=== PATIENT | female | born 1975 | race African-American/Black ===

== ENCOUNTER 2016-09-21 12:42 | Inpatient (IN) | payer SELFPAY ==
[~2016-09-21] VITALS: Ht 170.2 cm; Wt 77.0 kg
[2016-09-21 16:08] LABS: ABSOLUTE RETICULOCYTE CT. 0.04 M/uL (0.02-0.08); IMM.RETIC FRACTION 7.2 % (3-19); RETICULOCYTE COUNT 2.1 % (0.5-1.8)
[2016-09-21 16:16] LABS: HEMATOCRIT 19.1 % (36.0-46.0); MCH 34.2 PG (29.0-34.0); MCHC 35.1 G/DL (30.0-36.0); MCV 97.4 FL (83-99); RBC DIS.WIDTH-CV 24.5 % (11.8-14.6); RBC DIS.WIDTH-SD 77.1 % (39-53); RED BLOOD COUNT 1.96 M/uL (3.80-5.20); WHITE BLOOD COUNT 24.7 K/uL (4.1-10.2)
[2016-09-21 16:20] LABS: CHLORIDE 114 mEq/L (99-109); POTASSIUM 4.8 mEq/L (3.7-5.4); SODIUM 141 mEq/L (136-147)
[2016-09-21 16:22] LABS: GLUCOSE 96 mg/dL (70-99)
[2016-09-21 16:23] LABS: ANION GAP 9 MEQ/L (2-14)
[2016-09-21 16:24] LABS: TOTAL BILIRUBIN 5.7 mg/dL (0.0-1.0)
[2016-09-21 16:25] LABS: ALKALINE PHOSPHATASE 244 IU/L (3-129)
[2016-09-21 16:26] LABS: GFR ESTIMATE (CALCULATED) > 59 mL/min/
[2016-09-21 16:27] LABS: UREA NITROGEN (BUN) 8 mg/dL (9-23)
[2016-09-21 17:11] LABS: ANISOCYTOSIS 3+; EOSINOPHIL ABS CT 0.49; MEAN PLAT.VOLUME 10.6 uM^3 (9.5-12.4); OVALOCYTES RARE; PLAT.SUFFICIENCY INCREASED; PLATELET COUNT 536 K/uL (156-360); SICKLE CELLS 3+; TARGET CELLS RARE; USER ID NPD
[2016-09-21] MEDS ORDERED: FOLIC ACID1 MG PO (17:11)
[2016-09-21] MEDS ORDERED: HYDROXYUREA500 MG PO (17:11)
[2016-09-21] MEDS ORDERED: ONE-A-DAY ESSE1 EAC1 PO (17:11)
[2016-09-21 17:12] LABS: DELETE MACHINE DIFF? YES
[2016-09-21] MEDS ORDERED: MORPHINE SULFAT15 MG PO (17:12)
[2016-09-21] MEDS ORDERED: TYLENOL W/COD1 COMB1 PO (17:12)
[2016-09-22 07:42] LABS: HEMATOCRIT 16.4 % (36.0-46.0); MCH 33.5 PG (29.0-34.0); MCHC 34.8 G/DL (30.0-36.0); MCV 96.5 FL (83-99); MEAN PLAT.VOLUME 10.6 uM^3 (9.5-12.4); PLATELET COUNT 471 K/uL (156-360); RBC DIS.WIDTH-CV 23.7 % (11.8-14.6); RBC DIS.WIDTH-SD 78.8 % (39-53); WHITE BLOOD COUNT 24.6 K/uL (4.1-10.2)
[2016-09-22 07:53] LABS: ANION GAP 7 MEQ/L (2-14); CHLORIDE 112 MEQ/L (99-109); GFR ESTIMATE (CALCULATED) > 59 mL/min/; GLUCOSE 81 mg/dL (70-99); POTASSIUM 4.2 MEQ/L (3.7-5.4); SAMPLE HEMOLYSIS CHECK 0; SAMPLE ICTERIC CHECK 1; SAMPLE LIPEMIA CHECK 0; SODIUM 139 MEQ/L (136-147); UREA NITROGEN (BUN) 9 mg/dL (9-23)
[2016-09-22 09:10] VITALS: BP 117/56
[2016-09-22 15:58] VITALS: BP 103/50
[2016-09-22 17:44] LABS: ADD MIUA? YES; BILIRUBIN NEGATIVE; BLOOD NEGATIVE; COLOR AMBER ((YELLOW)); GLUCOSE (STRIP) NEGATIVE; KETONES NEGATIVE; LEUKOCYTES NEGATIVE; NITRITE NEGATIVE; PROTEIN (STRIP) NEGATIVE; SPECIFIC GRAVITY 1.009 (1.000-1.030); UROBILINOGEN 0.2 MG/DL (0.2-1.0)
[2016-09-22 19:21] LABS: BACTERIA NONE SEEN /HPF; EPITHELIAL CELLS 1+ /HPF; MUCUS TRACE /LPF; RED BLOOD CELLS NONE SEEN /HPF (0-5); UCUL ADDED? NO; WHITE BLOOD CELLS 0-5 /HPF (0-5)
[2016-09-22 19:47] VITALS: BP 96/53
[2016-09-23] VITALS (12 sets, daily range): BP systolic 98–129; BP diastolic 53–64
[2016-09-23 06:44] LABS: ANION GAP 8 MEQ/L (2-14); CHLORIDE 113 MEQ/L (99-109); GFR ESTIMATE (CALCULATED) > 59 mL/min/; POTASSIUM 4.1 MEQ/L (3.7-5.4); SAMPLE HEMOLYSIS CHECK 0; SAMPLE ICTERIC CHECK 1; SAMPLE LIPEMIA CHECK 1; SODIUM 140 MEQ/L (136-147); UREA NITROGEN (BUN) 10 mg/dL (9-23)
[2016-09-23 06:47] LABS: GLUCOSE 104 mg/dL (70-99)
[2016-09-23 07:23] LABS: HEMATOCRIT 14.8 % (36.0-46.0); MCH 34.6 PG (29.0-34.0); MCHC 36.5 G/DL (30.0-36.0); MCV 94.9 FL (83-99); RBC DIS.WIDTH-CV 25.5 % (11.8-14.6); RBC DIS.WIDTH-SD 83.6 % (39-53); RED BLOOD COUNT 1.56 M/uL (3.80-5.20); WHITE BLOOD COUNT 24.8 K/uL (4.1-10.2)
[2016-09-23 07:41] LABS: BASOPHIL COUNT 0.2 K/uL (0-0.1); EOSINOPHIL (%) 8.5 % (0-5); EOSINOPHIL COUNT 2.1 K/uL (0-0.3); HEMATOLOGY COMMENT 1 SMEAR COMPATIBLE; IMMATURE GRANULOCYTE (%) 0.5 % (0.0-0.7); IMMATURE GRANULOCYTE COUNT 0.1 K/uL; LYMPHOCYTE COUNT 11.6 K/uL (1.0-2.8); MEAN PLAT.VOLUME 9.9 uM^3 (9.5-12.4); MONOCYTE (%) 9.8 % (3-12); MONOCYTE COUNT 2.4 K/uL (0-0.8); NEUTROPHIL COUNT 8.4 K/uL (1.8-6.4); NRBC (%) 1.1 /100 WBC (0-0); PLAT.SUFFICIENCY INCREASED; PLATELET COUNT 425 K/uL (156-360); SICKLE CELLS 2+; USER ID STC
[2016-09-24] VITALS (9 sets, daily range): BP systolic 103–125; BP diastolic 51–66
[2016-09-24 07:07] LABS: HEMATOCRIT 19.5 % (36.0-46.0); MCH 33.3 PG (29.0-34.0); MCHC 35.9 G/DL (30.0-36.0); MCV 92.9 FL (83-99); MEAN PLAT.VOLUME 10.5 uM^3 (9.5-12.4); PLATELET COUNT 421 K/uL (156-360); RBC DIS.WIDTH-CV 20.5 % (11.8-14.6); WHITE BLOOD COUNT 20.6 K/uL (4.1-10.2)
[2016-09-24 18:13] LABS: INFLUENZA A VIRAL ANTIGEN NEGATIVE; INFLUENZA B VIRAL ANTIGEN NEGATIVE
[2016-09-25 03:36] VITALS: BP 126/63
[2016-09-25 07:45] VITALS: BP 135/78
[2016-09-25 12:19] VITALS: BP 122/58
[2016-09-25 14:45] LABS: HEMATOCRIT 19.8 % (36.0-46.0); MCHC 36.9 G/DL (30.0-36.0); MCV 92.1 FL (83-99); NRBC (%) 0.7 /100 WBC (0-0); RBC DIS.WIDTH-CV 19.1 % (11.8-14.6); RBC DIS.WIDTH-SD 60.5 % (39-53); RED BLOOD COUNT 2.15 M/uL (3.80-5.20); WHITE BLOOD COUNT 25.8 K/uL (4.1-10.2)
[2016-09-25 15:31] LABS: ANISOCYTOSIS 2+; BASOPHIL COUNT 0.1 K/uL (0-0.1); EOSINOPHIL (%) 0.9 % (0-5); EOSINOPHIL COUNT 0.2 K/uL (0-0.3); IMMATURE GRANULOCYTE (%) 0.4 % (0.0-0.7); IMMATURE GRANULOCYTE COUNT 0.1 K/uL; LYMPHOCYTE COUNT 7.2 K/uL (1.0-2.8); MACROCYTES 1+; MEAN PLAT.VOLUME 10.2 uM^3 (9.5-12.4); MICROCYTOSIS 1+; MONOCYTE (%) 9.8 % (3-12); MONOCYTE COUNT 2.5 K/uL (0-0.8); NEUTROPHIL (%) 60.7 % (45-76); NEUTROPHIL COUNT 15.7 K/uL (1.8-6.4); PLAT.SUFFICIENCY ADEQUATE; PLATELET COUNT 329 K/uL (156-360); POLYCHROMASIA OCC; SCHISTOCYTES OCC; SICKLE CELLS 1+; TARGET CELLS RARE; USER ID VLB
[2016-09-25 15:42] VITALS: BP 113/62
[2016-09-25 15:52] LABS: CHLORIDE 110 MEQ/L (99-109); GFR ESTIMATE (CALCULATED) > 59 mL/min/; GLUCOSE 107 mg/dL (70-99); POTASSIUM 4.4 MEQ/L (3.7-5.4); SAMPLE HEMOLYSIS CHECK 0; SODIUM 138 MEQ/L (136-147); UREA NITROGEN (BUN) 18 mg/dL (9-23)
[2016-09-25 15:53] LABS: ANION GAP 7 MEQ/L (2-14); SAMPLE ICTERIC CHECK 3; SAMPLE LIPEMIA CHECK 0
[2016-09-25 19:37] VITALS: BP 105/54
[2016-09-25 23:55] VITALS: BP 105/55
[2016-09-26 03:54] VITALS: BP 120/56
[2016-09-26 07:00] LABS: HEMATOCRIT 19.8 % (36.0-46.0); MCH 33.2 PG (29.0-34.0); MCHC 35.4 G/DL (30.0-36.0); MCV 93.8 FL (83-99); MEAN PLAT.VOLUME 10.3 uM^3 (9.5-12.4); NRBC (%) 0.8 /100 WBC (0-0); PLATELET COUNT 339 K/uL (156-360); RBC DIS.WIDTH-CV 19.7 % (11.8-14.6); RBC DIS.WIDTH-SD 66.1 % (39-53); RED BLOOD COUNT 2.11 M/uL (3.80-5.20); WHITE BLOOD COUNT 21.8 K/uL (4.1-10.2)
[2016-09-26 07:13] LABS: BASOPHIL COUNT 0.1 K/uL (0-0.1); EOSINOPHIL (%) 5.4 % (0-5); EOSINOPHIL COUNT 1.2 K/uL (0-0.3); IMMATURE GRANULOCYTE (%) 0.5 % (0.0-0.7); IMMATURE GRANULOCYTE COUNT 0.1 K/uL; LYMPHOCYTE COUNT 9.3 K/uL (1.0-2.8); MONOCYTE (%) 11.2 % (3-12); MONOCYTE COUNT 2.5 K/uL (0-0.8); NEUTROPHIL (%) 39.7 % (45-76); NEUTROPHIL COUNT 8.7 K/uL (1.8-6.4)
[2016-09-26 07:30] VITALS: BP 122/58
[2016-09-26 07:43] LABS: ANION GAP 4 MEQ/L (2-14); CHLORIDE 108 MEQ/L (99-109); GFR ESTIMATE (CALCULATED) > 59 mL/min/; GLUCOSE 94 mg/dL (70-99); POTASSIUM 4.2 MEQ/L (3.7-5.4); SAMPLE HEMOLYSIS CHECK 0; SAMPLE ICTERIC CHECK 2; SAMPLE LIPEMIA CHECK 0; SODIUM 138 MEQ/L (136-147); UREA NITROGEN (BUN) 14 mg/dL (9-23)
[2016-09-26 09:00] LABS: HEMATOLOGY COMMENT 1 REV; USER ID NJR
[2016-09-26 12:00] VITALS: BP 120/58
[2016-09-26 17:43] VITALS: BP 109/53
[2016-09-26 19:45] VITALS: BP 131/62
[2016-09-27 00:45] VITALS: BP 155/70
[2016-09-27 04:45] VITALS: BP 136/64
[2016-09-27 08:33] LABS: HEMATOCRIT 20.5 % (36.0-46.0); MCHC 34.6 G/DL (30.0-36.0); MCV 95.3 FL (83-99); MEAN PLAT.VOLUME 10.9 uM^3 (9.5-12.4); NRBC (%) 1.3 /100 WBC (0-0); PLATELET COUNT 361 K/uL (156-360); RBC DIS.WIDTH-CV 19.4 % (11.8-14.6); RBC DIS.WIDTH-SD 64.8 % (39-53); RED BLOOD COUNT 2.15 M/uL (3.80-5.20); WHITE BLOOD COUNT 19.1 K/uL (4.1-10.2)
[2016-09-27 08:57] LABS: ANION GAP 6 MEQ/L (2-14); CHLORIDE 108 MEQ/L (99-109); GFR ESTIMATE (CALCULATED) > 59 mL/min/; GLUCOSE 87 mg/dL (70-99); POTASSIUM 3.9 MEQ/L (3.7-5.4); SAMPLE HEMOLYSIS CHECK 0; SAMPLE ICTERIC CHECK 2; SAMPLE LIPEMIA CHECK 0; SODIUM 141 MEQ/L (136-147); UREA NITROGEN (BUN) 10 mg/dL (9-23)
[2016-09-27 09:22] VITALS: BP 134/68
[2016-09-27 09:48] LABS: ANISOCYTOSIS 1+; BASOPHIL COUNT 0.1 K/uL (0-0.1); EOSINOPHIL (%) 6.8 % (0-5); EOSINOPHIL COUNT 1.3 K/uL (0-0.3); HEMATOLOGY COMMENT 1 SMEAR COMPATIBLE; HYPOCHROMASIA 2+; IMMATURE GRANULOCYTE (%) 0.4 % (0.0-0.7); IMMATURE GRANULOCYTE COUNT 0.1 K/uL; LYMPHOCYTE COUNT 8.2 K/uL (1.0-2.8); MACROCYTES 1+; MICROCYTOSIS OCC; MONOCYTE COUNT 2.1 K/uL (0-0.8); NEUTROPHIL (%) 38.2 % (45-76); NEUTROPHIL COUNT 7.3 K/uL (1.8-6.4); PLAT.SUFFICIENCY INCREASED; POLYCHROMASIA OCC; SICKLE CELLS OCC; TARGET CELLS OCC; USER ID TLW
[2016-09-28 07:30] VITALS: BP 114/65
[2016-09-28 08:20] VITALS: BP 147/67
[2016-09-28 13:00] VITALS: BP 148/70
[2016-09-28 15:14] LABS: HEMATOCRIT 22.1 % (36.0-46.0); MCH 33.3 PG (29.0-34.0); MCHC 34.8 G/DL (30.0-36.0); MCV 95.7 FL (83-99); MEAN PLAT.VOLUME 10.9 uM^3 (9.5-12.4); PLATELET COUNT 394 K/uL (156-360); RBC DIS.WIDTH-CV 19.7 % (11.8-14.6); RBC DIS.WIDTH-SD 66.1 % (39-53); RED BLOOD COUNT 2.31 M/uL (3.80-5.20)
[2016-09-28 15:44] LABS: ALKALINE PHOSPHATASE 216 IU/L (3-129); ANION GAP 8 MEQ/L (2-14); CHLORIDE 106 MEQ/L (99-109); DIRECT BILIRUBIN 2.8 mg/dL (0.0-0.3); GFR ESTIMATE (CALCULATED) > 59 mL/min/; GLUCOSE 85 mg/dL (70-99); POTASSIUM 4.2 MEQ/L (3.7-5.4); SAMPLE HEMOLYSIS CHECK 0; SAMPLE ICTERIC CHECK 2; SAMPLE LIPEMIA CHECK 0; SODIUM 140 MEQ/L (136-147); TOTAL BILIRUBIN 6.9 MG/DL (0.0-1.0); UREA NITROGEN (BUN) 7 mg/dL (9-23)
[2016-09-28 19:40] VITALS: BP 168/73
[2016-09-29 01:20] VITALS: BP 145/62
[2016-09-29 05:06] VITALS: BP 166/71
[2016-09-29 06:39] LABS: HEMATOCRIT 22.4 % (36.0-46.0); MCH 33.3 PG (29.0-34.0); MCHC 34.4 G/DL (30.0-36.0); RBC DIS.WIDTH-CV 20.1 % (11.8-14.6); RBC DIS.WIDTH-SD 68.5 % (39-53); RED BLOOD COUNT 2.31 M/uL (3.80-5.20); WHITE BLOOD COUNT 16.1 K/uL (4.1-10.2)
[2016-09-29 07:04] LABS: ALKALINE PHOSPHATASE 209 IU/L (3-129); ANION GAP 7 MEQ/L (2-14); CHLORIDE 107 MEQ/L (99-109); DIRECT BILIRUBIN 1.7 mg/dL (0.0-0.3); GFR ESTIMATE (CALCULATED) > 59 mL/min/; GLUCOSE 95 mg/dL (70-99); SAMPLE HEMOLYSIS CHECK 0; SAMPLE ICTERIC CHECK 1; SAMPLE LIPEMIA CHECK 0; SODIUM 140 MEQ/L (136-147); TOTAL BILIRUBIN 5.6 MG/DL (0.0-1.0); UREA NITROGEN (BUN) 4 mg/dL (9-23)
[2016-09-29 08:33] LABS: BASOPHIL COUNT 0.1 K/uL (0-0.1); EOSINOPHIL (%) 5.9 % (0-5); HEMATOLOGY COMMENT 1 SMEAR COMPATIBLE; IMMATURE GRANULOCYTE (%) 0.4 % (0.0-0.7); IMMATURE GRANULOCYTE COUNT 0.1 K/uL; LYMPHOCYTE COUNT 6.8 K/uL (1.0-2.8); MEAN PLAT.VOLUME 11.3 uM^3 (9.5-12.4); MONOCYTE (%) 13.7 % (3-12); MONOCYTE COUNT 2.2 K/uL (0-0.8); NEUTROPHIL (%) 37.5 % (45-76); PLAT.SUFFICIENCY INCREASED; PLATELET COUNT 373 K/uL (156-360); USER ID STC
[2016-09-29 08:37] VITALS: BP 142/67
[2016-09-29] MEDS ORDERED: TYLENOL W/COD1 COMB1 PO (10:13)
== END 2016-09-29 12:47 | disposition home health service (06) | DRG 811 ==
LOC: EME 12:42 → EDOF 20:15 → 4SOUTH 20:15 → 4EAST 09-23 15:52
PROVIDERS: Emergency Medicine; Internal Medicine; Internal Medicine Hematology & Oncology; Physician Assistant; Student in an Organized Health Care Education/Training Program
PROC: 30233N1 Transfusion of Nonautologous Red Blood Cells into Peripheral Vein, Percutaneous Approach (ICD-10-PCS; principal; 2016-09-23)
DX: D57.00 Hb-SS disease with crisis, unspecified (principal); J18.9 Pneumonia, unspecified organism; R17 Unspecified jaundice; D72.829 Elevated white blood cell count, unspecified; Z88.0 Allergy status to penicillin; Z88.6 Allergy status to analgesic agent; Z88.1 Allergy status to other antibiotic agents; Z87.891 Personal history of nicotine dependence; Z83.2 Family history of diseases of the blood and blood-forming organs and certain disorders involving the immune mechanism; M54.5 Low back pain; R94.5 Abnormal results of liver function studies
CPT/HCPCS: 71010; 71020; 80048; 80053; 80076; 81003; 85025; 85027; 85045; 86156 90; 86850; 86860 90; 86870; 86880 90; 86885 90; 86900; 86900 90; 86901; 86901 90; 86905; 86906 90; 86920; 86971 90; 86978 90; 87040; 87502; 93005; 94799; 99281; 99285; J1200; J1650; J1885; J1956; J2270; J2405; J2930; J7030; J7120; P9016

== ENCOUNTER 2016-11-21 13:48 | Emergency (ER) | payer SELFPAY ==
[~2016-11-21] VITALS: Ht 170.2 cm; Wt 65.6 kg
[~2016-11-21 13:48] MED LIST: FOLIC ACID1 MG PO; HYDROXYUREA500 MG PO; MORPHINE SULFAT15 MG PO; ONE-A-DAY ESSE1 EAC1 PO; TYLENOL W/COD1 COMB1 PO
[2016-11-21 16:24] LABS: ADD MIUA? YES; BILIRUBIN NEGATIVE; BLOOD NEGATIVE; COLOR AMBER ((YELLOW)); GLUCOSE (STRIP) NEGATIVE; KETONES NEGATIVE; LEUKOCYTES NEGATIVE; NITRITE NEGATIVE; PROTEIN (STRIP) NEGATIVE; SPECIFIC GRAVITY 1.012 (1.000-1.030); UROBILINOGEN 0.2 MG/DL (0.2-1.0)
[2016-11-21 16:38] LABS: BACTERIA RARE /HPF; CASTS PRESENT /LPF; EPITHELIAL CELLS RARE /HPF; HYALINE CASTS 0-5 /LPF; MUCUS NONE SEEN /LPF; RED BLOOD CELLS 0-5 /HPF (0-5); WHITE BLOOD CELLS 0-5 /HPF (0-5)
[2016-11-21] MEDS ORDERED: ARYMO ER15 MG PO (18:26)
[2016-11-21 18:41] VITALS: BP 126/74
== END 2016-11-21 18:41 | disposition home or self-care (01) ==
LOC: EME 13:48
PROVIDERS: Physician Assistant
DX: D57.1 Sickle-cell disease without crisis (principal); M54.5 Low back pain; M79.604 Pain in right leg; M79.605 Pain in left leg; R06.00 Dyspnea, unspecified; R05 Cough
CPT/HCPCS: 71020; 80048; 81003; 85025; 85045; 99281; 99283; J2270

== ENCOUNTER 2016-12-24 02:13 | Inpatient (IN) | payer OTHER ==
[~2016-12-24] VITALS: Ht 170.2 cm; Wt 65.4 kg
[2016-12-24] VITALS (9 sets, daily range): BP systolic 95–113; BP diastolic 50–57
[~2016-12-24 02:13] MED LIST changes: +ARYMO ER15 MG PO
[2016-12-24 03:23] LABS: ADD MIUA? NO; BILIRUBIN NEGATIVE; BLOOD NEGATIVE; COLOR YELLOW ((YELLOW)); GLUCOSE (STRIP) NEGATIVE; KETONES NEGATIVE; LEUKOCYTES NEGATIVE; NITRITE NEGATIVE; PROTEIN (STRIP) 30; SPECIFIC GRAVITY 1.008 (1.000-1.030); UCUL ADDED? NO; UROBILINOGEN 0.2 MG/DL (0.2-1.0)
[2016-12-24 03:32] LABS: HEMATOCRIT 18.9 % (36.0-46.0); MCH 35.3 PG (29.0-34.0); MCHC 35.4 G/DL (30.0-36.0); MCV 99.5 FL (83-99); NRBC (%) 1.5 /100 WBC (0-0); PLATELET COUNT 444 K/uL (156-360); RBC DIS.WIDTH-CV 25.5 % (11.8-14.6); RBC DIS.WIDTH-SD 86.2 % (39-53); WHITE BLOOD COUNT 24.6 K/uL (4.1-10.2)
[2016-12-24 03:35] LABS: CHLORIDE 111 mEq/L (99-109); POTASSIUM 4.8 mEq/L (3.7-5.4); SODIUM 136 mEq/L (136-147)
[2016-12-24 03:37] LABS: GLUCOSE 98 mg/dL (70-99)
[2016-12-24 03:39] LABS: ANION GAP 8 MEQ/L (2-14); TOTAL BILIRUBIN 7.3 mg/dL (0.0-1.0)
[2016-12-24 03:41] LABS: ALKALINE PHOSPHATASE 261 IU/L (3-129); GFR ESTIMATE (CALCULATED) > 59 mL/min/
[2016-12-24 03:42] LABS: UREA NITROGEN (BUN) 14 mg/dL (9-23)
[2016-12-24 03:44] LABS: LIPASE 257 U/L (1.0-51.0)
[2016-12-24 03:50] LABS: QUANTITATIVE HCG < 4.0 MIU/ML
[2016-12-24 04:48] LABS: ABS NEUTROPHIL COUNT 12.9; EOSINOPHIL ABS CT 0.9; EOSINOPHILS 3.6 % (0-5.0); IMM.RETIC FRACTION 28.7 % (3-19); INSTRUMENT ABS NEUTROPHIL CT 11.6 K/uL; LYMPHOCYTES 32.4 % (15.0-45.0); MYELOCYTES 1.8 %; NUCLEATED RBC'S 2.7; RETIC HGB EQUIVALENT 31.7 (28-36); SEG.NEUTROPHILS 52.3 % (46.0-76.0)
[2016-12-24 04:49] LABS: RETICULOCYTE COUNT 43.8 % (0.5-1.8)
[2016-12-24] MEDS ORDERED: ALEVE220 MG PO (14:57)
[2016-12-25] VITALS (8 sets, daily range): BP systolic 105–129; BP diastolic 51–65
[2016-12-25 09:45] LABS: HEMATOCRIT 20.8 % (36.0-46.0); MCHC 35.6 G/DL (30.0-36.0); MCV 92.9 FL (83-99); MEAN PLAT.VOLUME 10.6 uM^3 (9.5-12.4); NRBC (%) 1.3 /100 WBC (0-0); PLATELET COUNT 385 K/uL (156-360); RBC DIS.WIDTH-CV 20.5 % (11.8-14.6); RBC DIS.WIDTH-SD 66.8 % (39-53); RED BLOOD COUNT 2.24 M/uL (3.80-5.20)
[2016-12-25 10:48] LABS: ALKALINE PHOSPHATASE 232 IU/L (3-129); ANION GAP 7 MEQ/L (2-14); CHLORIDE 112 MEQ/L (99-109); GFR ESTIMATE (CALCULATED) > 59 mL/min/; GLUCOSE 83 mg/dL (70-99); LIPASE 187 U/L (1.0-51.0); SAMPLE HEMOLYSIS CHECK 0; SAMPLE ICTERIC CHECK 2; SAMPLE LIPEMIA CHECK 0; SODIUM 138 MEQ/L (136-147); TOTAL BILIRUBIN 6.8 MG/DL (0.0-1.0); UREA NITROGEN (BUN) 12 mg/dL (9-23)
[2016-12-26 03:46] VITALS: BP 119/61
[2016-12-26 06:39] LABS: ALKALINE PHOSPHATASE 248 IU/L (3-129); ANION GAP 7 MEQ/L (2-14); BASOPHIL COUNT 0.1 K/uL (0-0.1); CHLORIDE 107 MEQ/L (99-109); EOSINOPHIL (%) 3.8 % (0-5); EOSINOPHIL COUNT 0.7 K/uL (0-0.3); GFR ESTIMATE (CALCULATED) > 59 mL/min/; GLUCOSE 94 mg/dL (70-99); HDL CHOLESTEROL 18 MG/DL (Desirable>=50); HEMATOCRIT 18.6 % (36.0-46.0); IMMATURE GRANULOCYTE (%) 0.6 % (0.0-0.7); IMMATURE GRANULOCYTE COUNT 0.1 K/uL; INSTRUMENT ABS NEUTROPHIL CT 8.2 K/uL; LDL CHOLESTEROL 73 mg/dL (Desirable<100); LIPASE 85 U/L (1.0-51.0); LYMPHOCYTE COUNT 6.9 K/uL (1.0-2.8); MCH 32.4 PG (29.0-34.0); MCHC 35.5 G/DL (30.0-36.0); MCV 91.2 FL (83-99); MEAN PLAT.VOLUME 10.5 uM^3 (9.5-12.4); MONOCYTE (%) 14.1 % (3-12); MONOCYTE COUNT 2.6 K/uL (0-0.8); NEUTROPHIL (%) 44.1 % (45-76); NEUTROPHIL COUNT 8.2 K/uL (1.8-6.4); NON-HDL CHOLESTEROL 95 mg/dL (Desirable<160); NRBC (%) 0.8 /100 WBC (0-0); PLATELET COUNT 373 K/uL (156-360); POTASSIUM 4.7 MEQ/L (3.7-5.4); RBC DIS.WIDTH-CV 21.1 % (11.8-14.6); RBC DIS.WIDTH-SD 68.3 % (39-53); RED BLOOD COUNT 2.04 M/uL (3.80-5.20); SAMPLE HEMOLYSIS CHECK 0; SAMPLE ICTERIC CHECK 2; SAMPLE LIPEMIA CHECK 0; SODIUM 134 MEQ/L (136-147); TOTAL CHOLESTEROL 113 mg/dL (Desirable<200); TRIGLYCERIDES 108 MG/DL (Normal: <150); UREA NITROGEN (BUN) 12 mg/dL (9-23); WHITE BLOOD COUNT 18.5 K/uL (4.1-10.2)
[2016-12-26 06:46] LABS: TOTAL BILIRUBIN 10.2 MG/DL (0.0-1.0)
[2016-12-26 06:52] VITALS: BP 108/55
[2016-12-26 09:24] LABS: HBSG INDEX 0.27; HPCA INDEX 0.38
[2016-12-26 09:25] LABS: ANTI-HEPATITIS A VIRUS (IGM) Nonreactive; HAV INDEX 0.22
[2016-12-26 09:27] LABS: ANTI-HEPATITIS B CORE (IGM) Nonreactive; HBC IgM INDEX 0.06
[2016-12-26 11:22] VITALS: BP 113/53
[2016-12-26 15:33] VITALS: BP 113/54
[2016-12-26 23:24] VITALS: BP 110/52
[2016-12-27 07:51] VITALS: BP 110/54
[2016-12-27 13:19] LABS: HEMATOCRIT 19.9 % (36.0-46.0); MCH 31.8 PG (29.0-34.0); MCHC 35.2 G/DL (30.0-36.0); MCV 90.5 FL (83-99); NRBC (%) 1.1 /100 WBC (0-0); RBC DIS.WIDTH-CV 19.9 % (11.8-14.6); RBC DIS.WIDTH-SD 63.6 % (39-53)
[2016-12-27 14:27] LABS: PLAT.SUFFICIENCY INCREASED; PLATELET CLUMPS PRESENT - PLATELET COUNT APPEARS INCREASED; PLATELET COUNT UNABLE TO REPORT K/uL (156-360)
[2016-12-27 16:00] VITALS: BP 112/55
[2016-12-28] VITALS (7 sets, daily range): BP systolic 101–116; BP diastolic 50–62
[2016-12-29 03:36] VITALS: BP 104/53
[2016-12-29 06:59] VITALS: BP 106/53
[2016-12-29 10:48] LABS: CHLORIDE 107 mEq/L (99-109); POTASSIUM 4.8 mEq/L (3.7-5.4); SODIUM 137 mEq/L (136-147)
[2016-12-29 10:51] LABS: GLUCOSE 95 mg/dL (70-99)
[2016-12-29 10:52] LABS: ANION GAP 8 MEQ/L (2-14)
[2016-12-29 10:53] LABS: TOTAL BILIRUBIN 7.1 mg/dL (0.0-1.0)
[2016-12-29 10:54] LABS: ALKALINE PHOSPHATASE 236 IU/L (3-129); GFR ESTIMATE (CALCULATED) > 59 mL/min/
[2016-12-29 10:55] LABS: UREA NITROGEN (BUN) 7 mg/dL (9-23)
[2016-12-29 11:22] VITALS: BP 101/55
[2016-12-29 15:44] VITALS: BP 111/53
[2016-12-29 19:46] VITALS: BP 88/54
[2016-12-30] VITALS (7 sets, daily range): BP systolic 103–112; BP diastolic 51–59
[2016-12-30 10:52] LABS: ALKALINE PHOSPHATASE 246 IU/L (3-129); ANION GAP 7 MEQ/L (2-14); CHLORIDE 104 MEQ/L (99-109); GFR ESTIMATE (CALCULATED) > 59 mL/min/; GLUCOSE 112 mg/dL (70-99); POTASSIUM 5.7 MEQ/L (3.7-5.4); SAMPLE HEMOLYSIS CHECK 2; SAMPLE ICTERIC CHECK 2; SAMPLE LIPEMIA CHECK 0; SODIUM 136 MEQ/L (136-147); UREA NITROGEN (BUN) 7 mg/dL (9-23)
[2016-12-30 10:55] LABS: TOTAL BILIRUBIN 6.9 MG/DL (0.0-1.0)
[2016-12-30 13:52] LABS: NO-CHARGE AST (GOT) 88 IU/L (15-37); POTASSIUM 4.7 MEQ/L (3.7-5.4)
[2016-12-31] VITALS (9 sets, daily range): BP systolic 91–114; BP diastolic 50–64
[2016-12-31 09:31] LABS: ALKALINE PHOSPHATASE 249 IU/L (3-129); ANION GAP 6 MEQ/L (2-14); CHLORIDE 103 MEQ/L (99-109); GFR ESTIMATE (CALCULATED) > 59 mL/min/; GLUCOSE 109 mg/dL (70-99); POTASSIUM 4.1 MEQ/L (3.7-5.4); SAMPLE HEMOLYSIS CHECK 0; SAMPLE ICTERIC CHECK 1; SAMPLE LIPEMIA CHECK 0; SODIUM 137 MEQ/L (136-147); TOTAL BILIRUBIN 5.8 MG/DL (0.0-1.0); UREA NITROGEN (BUN) 8 mg/dL (9-23)
[2016-12-31 09:33] LABS: BASOPHIL COUNT 0.1 K/uL (0-0.1); EOSINOPHIL (%) 6.6 % (0-5); EOSINOPHIL COUNT 1.2 K/uL (0-0.3); IMMATURE GRANULOCYTE (%) 0.5 % (0.0-0.7); IMMATURE GRANULOCYTE COUNT 0.1 K/uL; INSTRUMENT ABS NEUTROPHIL CT 7.7 K/uL; LYMPHOCYTE COUNT 6.8 K/uL (1.0-2.8); MCHC 32.1 G/DL (30.0-36.0); MEAN PLAT.VOLUME 10.9 uM^3 (9.5-12.4); MONOCYTE (%) 12.3 % (3-12); MONOCYTE COUNT 2.2 K/uL (0-0.8); NEUTROPHIL (%) 42.4 % (45-76); NEUTROPHIL COUNT 7.7 K/uL (1.8-6.4); NRBC (%) 1.1 /100 WBC (0-0); RBC DIS.WIDTH-CV 20.8 % (11.8-14.6); RBC DIS.WIDTH-SD 74.7 % (39-53); RED BLOOD COUNT 1.85 M/uL (3.80-5.20); WHITE BLOOD COUNT 18.1 K/uL (4.1-10.2)
[2016-12-31 09:36] LABS: MCV 102.7 FL (83-99); PLATELET COUNT 440 K/uL (156-360)
[2017-01-01 07:08] VITALS: BP 116/62
[2017-01-01 08:08] LABS: HEMATOCRIT 22.5 % (36.0-46.0); MCH 31.6 PG (29.0-34.0); NRBC (%) 0.9 /100 WBC (0-0); RBC DIS.WIDTH-CV 20.8 % (11.8-14.6); RBC DIS.WIDTH-SD 72.8 % (39-53); WHITE BLOOD COUNT 17.4 K/uL (4.1-10.2)
[2017-01-01 08:10] LABS: RED BLOOD COUNT 2.28 M/uL (3.80-5.20)
[2017-01-01 08:11] LABS: MCV 98.7 FL (83-99)
[2017-01-01 08:21] LABS: MEAN PLAT.VOLUME 10.9 uM^3 (9.5-12.4); PLAT.SUFFICIENCY INCREASED; PLATELET COUNT 341 K/uL (156-360)
[2017-01-01 12:26] VITALS: BP 102/53
[2017-01-01 12:52] VITALS: BP 107/53
[2017-01-01 15:29] VITALS: BP 107/59
[2017-01-01 22:29] VITALS: BP 109/58
[2017-01-02 06:58] VITALS: BP 108/54
[2017-01-02 11:49] LABS: HEMATOCRIT 22.7 % (36.0-46.0); MCH 32.6 PG (29.0-34.0); MCHC 33.9 G/DL (30.0-36.0); MCV 96.2 FL (83-99); MEAN PLAT.VOLUME 10.8 uM^3 (9.5-12.4); NRBC (%) 0.5 /100 WBC (0-0); PLATELET COUNT 381 K/uL (156-360); RBC DIS.WIDTH-SD 64.6 % (39-53); RED BLOOD COUNT 2.36 M/uL (3.80-5.20); WHITE BLOOD COUNT 16.1 K/uL (4.1-10.2)
[2017-01-02] MEDS ORDERED: BISACODYL5 MG PO (12:49)
[2017-01-02] MEDS ORDERED: SENNA LAX8.6 MG PO (12:50)
[2017-01-02] MEDS ORDERED: ACETAMINOPHEN-1 EAC1 PO (12:51)
[2017-01-02] MEDS ORDERED: MS CONTIN,ORAMO15 M1 PO (14:52)
[2017-01-02 15:05] VITALS: BP 110/56
== END 2017-01-02 16:26 | disposition home or self-care (01) | DRG 811 ==
LOC: EME 02:13 → 2EASTP 05:52 → EDOF 05:52 → 2EASTP 07:40 → 5EAST 12-27 20:31
PROVIDERS: Emergency Medicine; Hospitalist; Internal Medicine
PROC: 30233N1 Transfusion of Nonautologous Red Blood Cells into Peripheral Vein, Percutaneous Approach (ICD-10-PCS; principal; 2016-12-24)
DX: D57.00 Hb-SS disease with crisis, unspecified (principal); K85.90 Acute pancreatitis without necrosis or infection, unspecified; J18.9 Pneumonia, unspecified organism; E87.2 Acidosis; E87.5 Hyperkalemia; E86.0 Dehydration; E80.6 Other disorders of bilirubin metabolism; R79.89 Other specified abnormal findings of blood chemistry; K59.00 Constipation, unspecified; F17.210 Nicotine dependence, cigarettes, uncomplicated; Z88.0 Allergy status to penicillin; Z88.1 Allergy status to other antibiotic agents; Z88.5 Allergy status to narcotic agent
CPT/HCPCS: 71010; 71020; 74181; 80053; 80061; 80074; 81003; 83690; 84702; 84999; 85025; 85027; 85045; 86256 90; 86860; 86870; 86880; 86900; 86901; 86905; 86920; 87040; 94799; 99281; 99285; J1200; J1650; J1940; J1956; J2060; J2270; J2405; J3010; J7030; P9016

== ENCOUNTER 2017-02-16 20:09 | Emergency (ER) | payer OTHER ==
[~2017-02-16] VITALS: Ht 170.2 cm; Wt 68.4 kg
[~2017-02-16 20:09] MED LIST changes: +ACETAMINOPHEN-1 EAC1 PO; +ALEVE220 MG PO; +BISACODYL5 MG PO; +MS CONTIN,ORAMO15 M1 PO; +SENNA LAX8.6 MG PO
[2017-02-17 00:59] LABS: HEMATOCRIT 21.1 % (36.0-46.0); MCH 32.5 PG (29.0-34.0); MCHC 35.5 G/DL (30.0-36.0); MCV 91.3 FL (83-99); MEAN PLAT.VOLUME 10.8 uM^3 (9.5-12.4); NRBC (%) 1.5 /100 WBC (0-0); PLATELET COUNT 430 K/uL (156-360); RBC DIS.WIDTH-CV 23.2 % (11.8-14.6); RBC DIS.WIDTH-SD 72.3 % (39-53); RED BLOOD COUNT 2.31 M/uL (3.80-5.20); WHITE BLOOD COUNT 29.6 K/uL (4.1-10.2)
[2017-02-17 01:48] LABS: CHLORIDE 110 mEq/L (99-109); POTASSIUM 4.5 mEq/L (3.7-5.4); SODIUM 137 mEq/L (136-147)
[2017-02-17 01:50] LABS: GLUCOSE 107 mg/dL (70-99)
[2017-02-17 01:51] LABS: ANION GAP 9 MEQ/L (2-14)
[2017-02-17 01:52] LABS: TOTAL BILIRUBIN 5.6 mg/dL (0.0-1.0)
[2017-02-17 01:54] LABS: ALKALINE PHOSPHATASE 317 IU/L (3-129); GFR ESTIMATE (CALCULATED) > 59 mL/min/
[2017-02-17 01:55] LABS: UREA NITROGEN (BUN) 16 mg/dL (9-23)
[2017-02-17 01:59] LABS: IMM.RETIC FRACTION 25.2 % (3-19); RETIC HGB EQUIVALENT 33.4 (28-36); RETICULOCYTE COUNT > 18.0 % (0.5-1.8)
[2017-02-17 02:24] VITALS: BP 132/58
== END 2017-02-17 02:27 | disposition left against medical advice (07) ==
LOC: EME 20:09
PROVIDERS: Emergency Medicine
DX: D57.00 Hb-SS disease with crisis, unspecified (principal); Z88.0 Allergy status to penicillin; Z88.6 Allergy status to analgesic agent
CPT/HCPCS: 71020; 80053; 85027; 85045; 86860; 86870; 86880; 86900; 86901; 99281; 99284; J2270; J3010

== ENCOUNTER 2017-03-04 13:47 | Inpatient (IN) | payer OTHER ==
[~2017-03-04] VITALS: Ht 170.2 cm; Wt 68.4 kg
[2017-03-04 16:19] LABS: CHLORIDE 110 mEq/L (99-109); POTASSIUM 3.9 mEq/L (3.7-5.4); SODIUM 139 mEq/L (136-147)
[2017-03-04 16:22] LABS: GLUCOSE 103 mg/dL (70-99)
[2017-03-04 16:23] LABS: ANION GAP 12 MEQ/L (2-14)
[2017-03-04 16:25] LABS: ALKALINE PHOSPHATASE 299 IU/L (3-129)
[2017-03-04 16:26] LABS: GFR ESTIMATE (CALCULATED) > 59 mL/min/
[2017-03-04 16:27] LABS: DIRECT BILIRUBIN 1.6 mg/dL (0.0-0.3); UREA NITROGEN (BUN) 13 mg/dL (9-23)
[2017-03-04 16:29] LABS: HEMATOCRIT 18.1 % (36.0-46.0); MCH 33.2 PG (29.0-34.0); MCHC 34.8 G/DL (30.0-36.0); MEAN PLAT.VOLUME 11.3 uM^3 (9.5-12.4); NRBC (%) 3.5 /100 WBC (0-0); PLATELET COUNT 361 K/uL (156-360); RBC DIS.WIDTH-CV 27.7 % (11.8-14.6)
[2017-03-04 16:30] LABS: MCV 95.3 FL (83-99)
[2017-03-04 16:34] LABS: TROP-I INTERPRETATION NEGATIVE; TROPONIN-I < 0.01 ng/mL (0.0-0.30)
[2017-03-04 17:56] LABS: ADD MIUA? YES; BILIRUBIN NEGATIVE; BLOOD SMALL; COLOR AMBER ((YELLOW)); GLUCOSE (STRIP) NEGATIVE; KETONES NEGATIVE; LEUKOCYTES NEGATIVE; NITRITE NEGATIVE; PROTEIN (STRIP) 30; SPECIFIC GRAVITY 1.011 (1.000-1.030); UROBILINOGEN 0.2 MG/DL (0.2-1.0)
[2017-03-04 17:59] LABS: RETIC HGB EQUIVALENT 34.4 (28-36); RETICULOCYTE COUNT > 18.0 % (0.5-1.8)
[2017-03-04 18:10] LABS: BACTERIA NONE SEEN /HPF; EPITHELIAL CELLS RARE /HPF; MUCUS NONE SEEN /LPF; RED BLOOD CELLS 0-5 /HPF (0-5); UCUL ADDED? NO; WHITE BLOOD CELLS 0-5 /HPF (0-5)
[2017-03-04 19:57] LABS: LIPASE 185 U/L (1.0-51.0)
[2017-03-04 21:26] VITALS: BP 129/61
[2017-03-05] VITALS (9 sets, daily range): BP systolic 98–130; BP diastolic 55–65
[2017-03-05 11:14] LABS: INTERNAL CONTROL VALID? YES
[2017-03-05 19:03] LABS: HEMATOCRIT 21.1 % (36.0-46.0); MCH 34.1 PG (29.0-34.0); MCHC 36.5 G/DL (30.0-36.0); MCV 93.4 FL (83-99); NRBC (%) 2.8 /100 WBC (0-0); RBC DIS.WIDTH-SD 75.3 % (39-53); RED BLOOD COUNT 2.26 M/uL (3.80-5.20); WHITE BLOOD COUNT 21.1 K/uL (4.1-10.2)
[2017-03-05 19:14] LABS: ANION GAP 6 MEQ/L (2-14); CHLORIDE 112 MEQ/L (99-109); POTASSIUM 4.1 MEQ/L (3.7-5.4); SAMPLE HEMOLYSIS CHECK 0; SAMPLE ICTERIC CHECK 1; SAMPLE LIPEMIA CHECK 0; SODIUM 139 MEQ/L (136-147); TOTAL BILIRUBIN 4.9 MG/DL (0.0-1.0)
[2017-03-05 19:20] LABS: ALKALINE PHOSPHATASE 245 IU/L (3-129); GFR ESTIMATE (CALCULATED) > 59 mL/min/; GLUCOSE 92 mg/dL (70-99); UREA NITROGEN (BUN) 10 mg/dL (9-23)
[2017-03-05 20:22] LABS: MEAN PLAT.VOLUME 10.9 uM^3 (9.5-12.4); PLAT.SUFFICIENCY INCREASED; PLATELET COUNT 357 K/uL (156-360)
[2017-03-06 05:40] LABS: HEMATOCRIT 23.5 % (36.0-46.0); MCV 91.1 FL (83-99); NRBC (%) 2.4 /100 WBC (0-0); RBC DIS.WIDTH-CV 21.7 % (11.8-14.6); RBC DIS.WIDTH-SD 68.8 % (39-53); RED BLOOD COUNT 2.58 M/uL (3.80-5.20); WHITE BLOOD COUNT 20.7 K/uL (4.1-10.2)
[2017-03-06 06:16] LABS: ANION GAP 7 MEQ/L (2-14); CHLORIDE 112 MEQ/L (99-109); GFR ESTIMATE (CALCULATED) > 59 mL/min/; GLUCOSE 97 mg/dL (70-99); IRON 114 MCG/DL (35-150); POTASSIUM 4.4 MEQ/L (3.7-5.4); SAMPLE HEMOLYSIS CHECK 0; SAMPLE ICTERIC CHECK 1; SAMPLE LIPEMIA CHECK 0; SODIUM 139 MEQ/L (136-147); UREA NITROGEN (BUN) 7 mg/dL (9-23)
[2017-03-06 06:54] LABS: MEAN PLAT.VOLUME 10.8 uM^3 (9.5-12.4); PLATELET COUNT 347 K/uL (156-360)
[2017-03-06 07:57] LABS: FERRITIN > 1500 NG/ML (10-291)
[2017-03-06 08:00] VITALS: BP 112/54
[2017-03-06 16:14] VITALS: BP 114/65
[2017-03-06 19:57] VITALS: BP 118/71
[2017-03-06 23:14] VITALS: BP 113/55
[2017-03-07 03:38] VITALS: BP 115/61
[2017-03-07 07:07] LABS: HEMATOCRIT 21.1 % (36.0-46.0); MCH 30.9 PG (29.0-34.0); MCHC 34.1 G/DL (30.0-36.0); MCV 90.6 FL (83-99); MEAN PLAT.VOLUME 11.2 uM^3 (9.5-12.4); NRBC (%) 1.6 /100 WBC (0-0); PLATELET COUNT 282 K/uL (156-360); RBC DIS.WIDTH-CV 20.6 % (11.8-14.6); RBC DIS.WIDTH-SD 64.9 % (39-53); RED BLOOD COUNT 2.33 M/uL (3.80-5.20); WHITE BLOOD COUNT 19.2 K/uL (4.1-10.2)
[2017-03-07 07:16] VITALS: BP 111/54
[2017-03-07 11:02] VITALS: BP 119/59
[2017-03-07 15:15] VITALS: BP 133/66
[2017-03-07 19:46] VITALS: BP 112/56
[2017-03-07 23:50] VITALS: BP 101/55
[2017-03-08 07:10] VITALS: BP 121/56
[2017-03-08 11:12] VITALS: BP 119/60
[2017-03-08 15:04] VITALS: BP 107/57
[2017-03-08 20:38] VITALS: BP 128/89
[2017-03-09] VITALS (7 sets, daily range): BP systolic 103–119; BP diastolic 51–64
[2017-03-09 07:22] LABS: ALKALINE PHOSPHATASE 216 IU/L (3-129); ANION GAP 6 MEQ/L (2-14); CHLORIDE 106 MEQ/L (99-109); GFR ESTIMATE (CALCULATED) > 59 mL/min/; GLUCOSE 90 mg/dL (70-99); POTASSIUM 4.8 MEQ/L (3.7-5.4); SAMPLE HEMOLYSIS CHECK 0; SAMPLE ICTERIC CHECK 2; SAMPLE LIPEMIA CHECK 0; SODIUM 137 MEQ/L (136-147); UREA NITROGEN (BUN) 15 mg/dL (9-23)
[2017-03-09 07:28] LABS: TOTAL BILIRUBIN 8.4 MG/DL (0.0-1.0)
[2017-03-09 16:51] LABS: HEMATOCRIT 18.4 % (36.0-46.0); MCV 88.5 FL (83-99)
[2017-03-10] VITALS (13 sets, daily range): BP systolic 97–148; BP diastolic 50–67
[2017-03-10 09:46] LABS: HEMATOCRIT 20.7 % (36.0-46.0); MCHC 34.3 G/DL (30.0-36.0); MCV 87.3 FL (83-99); NRBC (%) 0.4 /100 WBC (0-0); RBC DIS.WIDTH-CV 18.6 % (11.8-14.6); RBC DIS.WIDTH-SD 56.9 % (39-53); RED BLOOD COUNT 2.37 M/uL (3.80-5.20); WHITE BLOOD COUNT 20.5 K/uL (4.1-10.2)
[2017-03-10 10:18] LABS: MEAN PLAT.VOLUME 11.3 uM^3 (9.5-12.4); PLAT.SUFFICIENCY ADEQUATE; PLATELET COUNT 252 K/uL (156-360)
[2017-03-10 19:04] LABS: HGBE Erythrocyte Cnt 2.63 Mill/uL (3.80-5.10); HGBE Hematocrit 25.5 % (35.0-45.0); HGBE Hemoglobin 8.4 g/dL (11.7-15.5); HGBE MCH 31.9 pg (27.0-33.0); HGBE RDW 21.5 % (11.0-15.0)
[2017-03-11 06:00] LABS: ABSOLUTE RETICULOCYTE CT. 0.2 M/uL (0.02-0.08); IMM.RETIC FRACTION 40.4 % (3-19); RETIC HGB EQUIVALENT 33.2 (28-36)
[2017-03-11 06:07] LABS: RETICULOCYTE COUNT 7.2 % (0.5-1.8)
[2017-03-11 08:59] LABS: BASOPHIL COUNT 0.1 K/uL (0-0.1); EOSINOPHIL (%) 5.4 % (0-5); HEMATOCRIT 24.3 % (36.0-46.0); IMMATURE GRANULOCYTE (%) 0.6 % (0.0-0.7); IMMATURE GRANULOCYTE COUNT 0.1 K/uL; INSTRUMENT ABS NEUTROPHIL CT 8.5 K/uL; LYMPHOCYTE COUNT 6.1 K/uL (1.0-2.8); MCH 29.8 PG (29.0-34.0); MCHC 33.7 G/DL (30.0-36.0); MCV 88.4 FL (83-99); MEAN PLAT.VOLUME 11.6 uM^3 (9.5-12.4); MONOCYTE (%) 12.3 % (3-12); MONOCYTE COUNT 2.2 K/uL (0-0.8); NEUTROPHIL (%) 47.3 % (45-76); NEUTROPHIL COUNT 8.5 K/uL (1.8-6.4); NRBC (%) 0.6 /100 WBC (0-0); PLATELET COUNT 251 K/uL (156-360); RBC DIS.WIDTH-CV 19.3 % (11.8-14.6); RED BLOOD COUNT 2.75 M/uL (3.80-5.20)
[2017-03-11 09:00] VITALS: BP 99/52
[2017-03-11 11:40] VITALS: BP 109/54
[2017-03-11 17:28] VITALS: BP 93/51
[2017-03-11 23:44] VITALS: BP 107/56
[2017-03-12 06:10] LABS: BASOPHIL COUNT 0.1 K/uL (0-0.1); EOSINOPHIL (%) 4.3 % (0-5); EOSINOPHIL COUNT 0.8 K/uL (0-0.3); HEMATOCRIT 24.6 % (36.0-46.0); IMMATURE GRANULOCYTE (%) 0.5 % (0.0-0.7); IMMATURE GRANULOCYTE COUNT 0.1 K/uL; INSTRUMENT ABS NEUTROPHIL CT 8.5 K/uL; LYMPHOCYTE COUNT 5.2 K/uL (1.0-2.8); MCH 29.9 PG (29.0-34.0); MCHC 33.7 G/DL (30.0-36.0); MCV 88.5 FL (83-99); MEAN PLAT.VOLUME 11.6 uM^3 (9.5-12.4); MONOCYTE COUNT 2.8 K/uL (0-0.8); NEUTROPHIL COUNT 8.5 K/uL (1.8-6.4); NRBC (%) 0.3 /100 WBC (0-0); PLATELET COUNT 258 K/uL (156-360); RBC DIS.WIDTH-CV 19.2 % (11.8-14.6); RBC DIS.WIDTH-SD 60.1 % (39-53); RED BLOOD COUNT 2.78 M/uL (3.80-5.20); WHITE BLOOD COUNT 17.3 K/uL (4.1-10.2)
[2017-03-12 06:37] LABS: ALKALINE PHOSPHATASE 263 IU/L (3-129); ANION GAP 7 MEQ/L (2-14); CHLORIDE 103 MEQ/L (99-109); GFR ESTIMATE (CALCULATED) > 59 mL/min/; GLUCOSE 97 mg/dL (70-99); POTASSIUM 4.6 MEQ/L (3.7-5.4); SAMPLE HEMOLYSIS CHECK 0; SAMPLE ICTERIC CHECK 2; SAMPLE LIPEMIA CHECK 0; SODIUM 135 MEQ/L (136-147); UREA NITROGEN (BUN) 13 mg/dL (9-23)
[2017-03-12 07:00] LABS: TOTAL BILIRUBIN 6.4 MG/DL (0.0-1.0)
[2017-03-12 09:03] VITALS: BP 101/53
[2017-03-12 16:56] VITALS: BP 107/52
[2017-03-13] VITALS: BP 91/56
[2017-03-13 03:38] VITALS: BP 106/54
[2017-03-13 05:35] LABS: BASOPHIL COUNT 0.1 K/uL (0-0.1); EOSINOPHIL (%) 4.6 % (0-5); EOSINOPHIL COUNT 0.8 K/uL (0-0.3); HEMATOCRIT 22.1 % (36.0-46.0); IMMATURE GRANULOCYTE (%) 0.6 % (0.0-0.7); IMMATURE GRANULOCYTE COUNT 0.1 K/uL; INSTRUMENT ABS NEUTROPHIL CT 8.2 K/uL; MCH 30.4 PG (29.0-34.0); MCHC 33.9 G/DL (30.0-36.0); MCV 89.5 FL (83-99); MEAN PLAT.VOLUME 11.4 uM^3 (9.5-12.4); MONOCYTE (%) 16.2 % (3-12); MONOCYTE COUNT 2.8 K/uL (0-0.8); NEUTROPHIL (%) 48.5 % (45-76); NEUTROPHIL COUNT 8.2 K/uL (1.8-6.4); NRBC (%) 0.3 /100 WBC (0-0); PLATELET COUNT 236 K/uL (156-360); RBC DIS.WIDTH-CV 18.5 % (11.8-14.6); RBC DIS.WIDTH-SD 60.3 % (39-53); RED BLOOD COUNT 2.47 M/uL (3.80-5.20)
[2017-03-13 07:51] VITALS: BP 93/54
[2017-03-13 10:32] VITALS: BP 93/54
[2017-03-13] MEDS ORDERED: FOLIC ACID1 MG PO (11:39)
[2017-03-13] MEDS ORDERED: HYDREA500 MG PO (11:39)
[2017-03-13] MEDS ORDERED: TYLENOL W/COD1 COMBO PO (11:39)
[2017-03-13] MEDS ORDERED: TYLENOL WITH C1 EACH PO ×2 (13:46→13:47)
== END 2017-03-13 13:11 | disposition home or self-care (01) | DRG 811 ==
LOC: EME 13:47 → 5SOUTH 18:48 → EDOF 18:48 → 5SOUTH 20:39
PROVIDERS: Anesthesiology; Emergency Medicine; Internal Medicine; Internal Medicine Hematology & Oncology; Physician Assistant Medical
PROC: 30233N1 Transfusion of Nonautologous Red Blood Cells into Peripheral Vein, Percutaneous Approach (ICD-10-PCS; principal; 2017-03-04)
PROC: 02HV33Z Insertion of Infusion Device into Superior Vena Cava, Percutaneous Approach (ICD-10-PCS; 2017-03-05)
DX: D57.01 Hb-SS disease with acute chest syndrome (principal); J18.9 Pneumonia, unspecified organism; R17 Unspecified jaundice; Z90.49 Acquired absence of other specified parts of digestive tract; F17.200 Nicotine dependence, unspecified, uncomplicated; Z88.5 Allergy status to narcotic agent
CPT/HCPCS: 71010; 71250; 80048; 80053; 80076; 81003; 82728; 83021 90; 83540; 83605; 83690; 84466; 84484; 85014; 85018; 85025; 85027; 85045; 86860; 86870; 86880; 86900; 86901; 86905; 86920; 87040; 87449; 93005; 93971; 94799; 99281; 99285; J1200; J1644; J1956; J2270; J7030; P9016

== ENCOUNTER 2017-04-20 10:14 | Inpatient (IN) | payer OTHER ==
[~2017-04-20] VITALS: Ht 162.6 cm; Wt 72.6 kg
[~2017-04-20 10:14] MED LIST changes: +HYDREA500 MG PO; +TYLENOL W/COD1 COMBO PO; +TYLENOL WITH C1 EACH PO
[2017-04-20 12:38] LABS: HEMATOCRIT 20.9 % (36.0-46.0); IMM.RETIC FRACTION 21.5 % (3-19); MCH 29.6 PG (29.0-34.0); MCHC 34.4 G/DL (30.0-36.0); MEAN PLAT.VOLUME 10.5 uM^3 (9.5-12.4); NRBC (%) 0.5 /100 WBC (0-0); PLATELET COUNT 544 K/uL (156-360); RBC DIS.WIDTH-SD 62.7 % (39-53); RED BLOOD COUNT 2.43 M/uL (3.80-5.20); RETIC HGB EQUIVALENT 34.5 (28-36); RETICULOCYTE COUNT 15.4 % (0.5-1.8); WHITE BLOOD COUNT 26.3 K/uL (4.1-10.2)
[2017-04-20 12:54] LABS: CHLORIDE 112 mEq/L (99-109); POTASSIUM 4.2 mEq/L (3.7-5.4); SODIUM 137 mEq/L (136-147)
[2017-04-20 12:56] LABS: GLUCOSE 106 mg/dL (70-99)
[2017-04-20 12:57] LABS: ANION GAP 10 MEQ/L (2-14)
[2017-04-20 13:00] LABS: GFR ESTIMATE (CALCULATED) > 59 mL/min/
[2017-04-20 13:01] LABS: UREA NITROGEN (BUN) 18 mg/dL (9-23)
[2017-04-20 14:06] LABS: ABS NEUTROPHIL COUNT 11.9; ANISOCYTOSIS 2+; BASOPHILS 0.9 %; EOSINOPHIL ABS CT 2.1; EOSINOPHILS 7.9 % (0-5.0); GIANT PLATELETS 2+; HYPOCHROMASIA 2+; INSTRUMENT ABS NEUTROPHIL CT 11.7 K/uL; LYMPHOCYTES 39.2 % (15.0-45.0); MACROCYTES 2+; NUCLEATED RBC'S 1.8; PLAT.SUFFICIENCY INCREASED; POIKILOCYTOSIS 2+; POLYCHROMASIA 1+; SEG.NEUTROPHILS 45.4 % (46.0-76.0); SICKLE CELLS 2+; SPHEROCYTES 1+; TARGET CELLS 1+
[2017-04-20] MEDS ORDERED: TORADOL10 MG PO (16:33)
[2017-04-20] MEDS ORDERED: PERCOCET 5/31 TABLET PO (16:33)
[2017-04-20] MEDS ORDERED: FOLIC ACID1 MG PO (18:29)
[2017-04-20] MEDS ORDERED: ASPIR 8181 M1 PO (18:29)
[2017-04-20] MEDS ORDERED: COD LIVER OIL1 EACH PO (18:29)
[2017-04-20] MEDS ORDERED: HYDREA500 MG PO (18:29)
[2017-04-20 19:53] LABS: MAGNESIUM 2.1 mg/dL (1.3-2.7)
[2017-04-20 22:26] VITALS: BP 113/58
[2017-04-21] VITALS (7 sets, daily range): BP systolic 96–120; BP diastolic 53–63
[2017-04-21 04:15] LABS: ADD MIUA? YES; BILIRUBIN NEGATIVE; BLOOD SMALL; COLOR YELLOW ((YELLOW)); GLUCOSE (STRIP) NEGATIVE; KETONES NEGATIVE; LEUKOCYTES NEGATIVE; NITRITE NEGATIVE; PROTEIN (STRIP) NEGATIVE; SPECIFIC GRAVITY 1.009 (1.000-1.030); UROBILINOGEN 0.2 MG/DL (0.2-1.0)
[2017-04-21 04:29] LABS: BACTERIA RARE /HPF; EPITHELIAL CELLS RARE /HPF; MUCUS NONE SEEN /LPF; RED BLOOD CELLS 0-5 /HPF (0-5); UCUL ADDED? NO; WHITE BLOOD CELLS 0-5 /HPF (0-5)
[2017-04-21 09:02] LABS: INTER. NORMALIZED RATIO 1.2; PROTHROMBIN TIME 12.9 SEC (10.2-12.9)
[2017-04-21 09:08] LABS: HEMATOCRIT 17.3 % (36.0-46.0); MCH 30.5 PG (29.0-34.0); MCHC 35.3 G/DL (30.0-36.0); MCV 86.5 FL (83-99); MEAN PLAT.VOLUME 10.5 uM^3 (9.5-12.4); NRBC (%) 0.4 /100 WBC (0-0); PLATELET COUNT 491 K/uL (156-360); RBC DIS.WIDTH-CV 21.1 % (11.8-14.6); RBC DIS.WIDTH-SD 64.7 % (39-53); WHITE BLOOD COUNT 26.2 K/uL (4.1-10.2)
[2017-04-21 09:15] LABS: ALKALINE PHOSPHATASE 228 IU/L (3-129); ANION GAP 4 MEQ/L (2-14); CHLORIDE 114 MEQ/L (99-109); GFR ESTIMATE (CALCULATED) > 59 mL/min/; GLUCOSE 104 mg/dL (70-99); POTASSIUM 4.8 MEQ/L (3.7-5.4); SAMPLE HEMOLYSIS CHECK 0; SAMPLE ICTERIC CHECK 1; SAMPLE LIPEMIA CHECK 0; SODIUM 136 MEQ/L (136-147); TOTAL BILIRUBIN 4.4 MG/DL (0.0-1.0); UREA NITROGEN (BUN) 11 mg/dL (9-23)
[2017-04-22 03:45] VITALS: BP 105/54
[2017-04-22 07:52] VITALS: BP 108/54
[2017-04-22 10:13] LABS: ANION GAP 7 MEQ/L (2-14); CHLORIDE 111 MEQ/L (99-109); POTASSIUM 4.5 MEQ/L (3.7-5.4); SAMPLE HEMOLYSIS CHECK 0; SAMPLE ICTERIC CHECK 1; SAMPLE LIPEMIA CHECK 0; SODIUM 138 MEQ/L (136-147)
[2017-04-22 10:14] LABS: HEMATOCRIT 16.8 % (36.0-46.0); MCH 29.2 PG (29.0-34.0); MCHC 33.3 G/DL (30.0-36.0); MCV 87.5 FL (83-99); MEAN PLAT.VOLUME 10.6 uM^3 (9.5-12.4); NRBC (%) 0.4 /100 WBC (0-0); PLATELET COUNT 502 K/uL (156-360); RBC DIS.WIDTH-CV 20.8 % (11.8-14.6); RBC DIS.WIDTH-SD 63.4 % (39-53); RED BLOOD COUNT 1.92 M/uL (3.80-5.20); WHITE BLOOD COUNT 27.1 K/uL (4.1-10.2)
[2017-04-22 10:18] LABS: GFR ESTIMATE (CALCULATED) > 59 mL/min/; GLUCOSE 129 mg/dL (70-99); UREA NITROGEN (BUN) 9 mg/dL (9-23)
[2017-04-22 11:41] VITALS: BP 96/54
[2017-04-22 16:06] VITALS: BP 99/52
[2017-04-22 19:25] VITALS: BP 89/53
[2017-04-23] VITALS (12 sets, daily range): BP systolic 92–127; BP diastolic 47–65
[2017-04-23] MEDS ORDERED: MORPHINE SULFAT15 MG PO (12:57)
[2017-04-23 13:00] LABS: HEMATOCRIT 23.8 % (36.0-46.0); MCH 29.3 PG (29.0-34.0); MCHC 33.6 G/DL (30.0-36.0); MCV 87.2 FL (83-99); MEAN PLAT.VOLUME 10.3 uM^3 (9.5-12.4); NRBC (%) 1.1 /100 WBC (0-0); PLATELET COUNT 529 K/uL (156-360); RBC DIS.WIDTH-CV 18.9 % (11.8-14.6); RBC DIS.WIDTH-SD 57.4 % (39-53); WHITE BLOOD COUNT 25.5 K/uL (4.1-10.2)
[2017-04-23 13:13] LABS: RED BLOOD COUNT 2.73 M/uL (3.80-5.20)
[2017-04-24 00:55] VITALS: BP 104/63
[2017-04-24 07:27] VITALS: BP 106/54
[2017-04-24 15:25] VITALS: BP 104/53
[2017-04-25 00:43] VITALS: BP 105/52
[2017-04-25 07:22] VITALS: BP 106/54
[2017-04-25 15:18] VITALS: BP 122/58
[2017-04-25 22:24] LABS: HEMATOCRIT 22.8 % (36.0-46.0); MCH 30.5 PG (29.0-34.0); MCHC 34.2 G/DL (30.0-36.0); MCV 89.1 FL (83-99); NRBC (%) 0.3 /100 WBC (0-0); RBC DIS.WIDTH-CV 20.6 % (11.8-14.6); RBC DIS.WIDTH-SD 64.9 % (39-53); RED BLOOD COUNT 2.56 M/uL (3.80-5.20); WHITE BLOOD COUNT 14.5 K/uL (4.1-10.2)
[2017-04-25 23:09] LABS: MEAN PLAT.VOLUME 12.2 uM^3 (9.5-12.4); PLAT.SUFFICIENCY ADEQUATE
[2017-04-25 23:40] VITALS: BP 107/56
[2017-04-25 23:56] LABS: PLATELET COUNT 246 K/uL (156-360)
[2017-04-26 07:48] VITALS: BP 96/47
[2017-04-26 08:11] LABS: BASOPHIL COUNT 0.1 K/uL (0-0.1); EOSINOPHIL (%) 1.6 % (0-5); EOSINOPHIL COUNT 0.2 K/uL (0-0.3); HEMATOCRIT 21.3 % (36.0-46.0); IMMATURE GRANULOCYTE (%) 0.8 % (0.0-0.7); IMMATURE GRANULOCYTE COUNT 0.1 K/uL; LYMPHOCYTE COUNT 5.2 K/uL (1.0-2.8); MCHC 34.3 G/DL (30.0-36.0); MCV 87.7 FL (83-99); MEAN PLAT.VOLUME 10.8 uM^3 (9.5-12.4); MONOCYTE (%) 17.8 % (3-12); MONOCYTE COUNT 2.7 K/uL (0-0.8); NEUTROPHIL (%) 45.7 % (45-76); NRBC (%) 0.3 /100 WBC (0-0); PLATELET COUNT 360 K/uL (156-360); RBC DIS.WIDTH-CV 19.8 % (11.8-14.6); RBC DIS.WIDTH-SD 61.6 % (39-53); RED BLOOD COUNT 2.43 M/uL (3.80-5.20); WHITE BLOOD COUNT 15.4 K/uL (4.1-10.2)
[2017-04-26 08:37] LABS: ALKALINE PHOSPHATASE 265 IU/L (3-129); ANION GAP 8 MEQ/L (2-14); CHLORIDE 104 MEQ/L (99-109); GFR ESTIMATE (CALCULATED) > 59 mL/min/; GLUCOSE 108 mg/dL (70-99); SAMPLE HEMOLYSIS CHECK 0; SAMPLE ICTERIC CHECK 2; SAMPLE LIPEMIA CHECK 0; SODIUM 134 MEQ/L (136-147); UREA NITROGEN (BUN) 15 mg/dL (9-23)
[2017-04-26 08:38] LABS: TOTAL BILIRUBIN 10.2 MG/DL (0.0-1.0)
[2017-04-26 10:18] LABS: LIPASE 82 U/L (1.0-51.0)
[2017-04-26 12:28] LABS: INFLUENZA A VIRAL ANTIGEN NEGATIVE; INFLUENZA B VIRAL ANTIGEN NEGATIVE
[2017-04-26 12:36] LABS: ADD MIUA? YES; BILIRUBIN NEGATIVE; BLOOD SMALL; COLOR AMBER ((YELLOW)); GLUCOSE (STRIP) NEGATIVE; KETONES NEGATIVE; LEUKOCYTES NEGATIVE; NITRITE NEGATIVE; PROTEIN (STRIP) NEGATIVE; SPECIFIC GRAVITY 1.009 (1.000-1.030)
[2017-04-26 12:55] LABS: INTERNAL CONTROL VALID? YES; MONOSPOT (MONONUCLEOSIS SEROL) NEGATIVE
[2017-04-26 12:55] LABS: BACTERIA NONE SEEN /HPF; EPITHELIAL CELLS RARE /HPF; MUCUS NONE SEEN /LPF; RED BLOOD CELLS 0-5 /HPF (0-5); UCUL ADDED? NO; UNCLASSIFIED CASTS 0-5 /LPF; WHITE BLOOD CELLS 0-5 /HPF (0-5)
[2017-04-26 15:35] VITALS: BP 97/48
[2017-04-26 23:45] VITALS: BP 105/52
[2017-04-27 06:35] LABS: BASOPHIL COUNT 0.1 K/uL (0-0.1); EOSINOPHIL COUNT 0.3 K/uL (0-0.3); HEMATOCRIT 20.2 % (36.0-46.0); IMMATURE GRANULOCYTE (%) 0.5 % (0.0-0.7); IMMATURE GRANULOCYTE COUNT 0.1 K/uL; INSTRUMENT ABS NEUTROPHIL CT 5.9 K/uL; MCH 29.8 PG (29.0-34.0); MCHC 33.2 G/DL (30.0-36.0); MCV 89.8 FL (83-99); MEAN PLAT.VOLUME 11.2 uM^3 (9.5-12.4); MONOCYTE (%) 16.6 % (3-12); MONOCYTE COUNT 2.5 K/uL (0-0.8); NEUTROPHIL (%) 39.9 % (45-76); NEUTROPHIL COUNT 5.9 K/uL (1.8-6.4); NRBC (%) 0.3 /100 WBC (0-0); PLATELET COUNT 352 K/uL (156-360); RBC DIS.WIDTH-CV 19.6 % (11.8-14.6); RBC DIS.WIDTH-SD 62.6 % (39-53); RED BLOOD COUNT 2.25 M/uL (3.80-5.20); WHITE BLOOD COUNT 14.9 K/uL (4.1-10.2)
[2017-04-27 06:58] LABS: ALKALINE PHOSPHATASE 232 IU/L (3-129); ANION GAP 5 MEQ/L (2-14); CHLORIDE 104 MEQ/L (99-109); GFR ESTIMATE (CALCULATED) > 59 mL/min/; GLUCOSE 88 mg/dL (70-99); POTASSIUM 5.2 MEQ/L (3.7-5.4); SAMPLE HEMOLYSIS CHECK 0; SAMPLE ICTERIC CHECK 2; SAMPLE LIPEMIA CHECK 0; SODIUM 133 MEQ/L (136-147); UREA NITROGEN (BUN) 14 mg/dL (9-23)
[2017-04-27 08:02] VITALS: BP 99/55
[2017-04-27 10:36] LABS: ANTI-HEPATITIS A VIRUS (IGM) Nonreactive; HAV INDEX 0.11; HBSG INDEX 0.17; HPCA INDEX 0.41
[2017-04-27 10:38] LABS: ANTI-HEPATITIS B CORE (IGM) Nonreactive; HBC IgM INDEX 0.04
[2017-04-27 15:39] VITALS: BP 101/54
[2017-04-27 21:11] VITALS: BP 92/55
[2017-04-27 22:20] VITALS: BP 98/53
[2017-04-27 23:24] VITALS: BP 103/52
[2017-04-28 01:03] VITALS: BP 95/54
[2017-04-28 01:24] VITALS: BP 103/58
[2017-04-28 02:39] VITALS: BP 95/51
[2017-04-28 03:39] VITALS: BP 121/61
[2017-04-28 06:47] LABS: BASOPHIL COUNT 0.1 K/uL (0-0.1); EOSINOPHIL (%) 5.5 % (0-5); EOSINOPHIL COUNT 0.7 K/uL (0-0.3); HEMATOCRIT 26.7 % (36.0-46.0); IMMATURE GRANULOCYTE (%) 0.3 % (0.0-0.7); INSTRUMENT ABS NEUTROPHIL CT 4.2 K/uL; LYMPHOCYTE COUNT 6.2 K/uL (1.0-2.8); MCH 30.7 PG (29.0-34.0); MCHC 34.5 G/DL (30.0-36.0); MEAN PLAT.VOLUME 11.2 uM^3 (9.5-12.4); MONOCYTE (%) 12.4 % (3-12); MONOCYTE COUNT 1.6 K/uL (0-0.8); NEUTROPHIL (%) 32.5 % (45-76); NEUTROPHIL COUNT 4.2 K/uL (1.8-6.4); NRBC (%) 0.2 /100 WBC (0-0); PLATELET COUNT 348 K/uL (156-360); RBC DIS.WIDTH-CV 18.1 % (11.8-14.6); RBC DIS.WIDTH-SD 58.3 % (39-53); WHITE BLOOD COUNT 12.8 K/uL (4.1-10.2)
[2017-04-28 07:17] LABS: ALKALINE PHOSPHATASE 255 IU/L (3-129); ANION GAP 8 MEQ/L (2-14); CHLORIDE 105 MEQ/L (99-109); GFR ESTIMATE (CALCULATED) > 59 mL/min/; GLUCOSE 116 mg/dL (70-99); POTASSIUM 4.4 MEQ/L (3.7-5.4); SAMPLE HEMOLYSIS CHECK 0; SAMPLE ICTERIC CHECK 1; SAMPLE LIPEMIA CHECK 0; SODIUM 135 MEQ/L (136-147); TOTAL BILIRUBIN 4.9 MG/DL (0.0-1.0); UREA NITROGEN (BUN) 12 mg/dL (9-23)
[2017-04-28 08:02] VITALS: BP 110/60
[2017-04-28 13:23] VITALS: BP 110/60
[2017-04-28 16:43] LABS: ALPHA-1-ANTITRYPSIN+ 177 mg/dL (83-199)
[2017-04-28 22:45] LABS: ANTI-SMOOTH MUSCLE (Actin)+ 25 U (<20); MITOCHONDRIAL (M2) ANTIBODIES+ <=20.0 U (<=20.0)
== END 2017-04-28 16:00 | disposition home or self-care (01) | DRG 812 ==
LOC: EME 10:14 → EDOF 19:27 → ENRESERV 19:30 → 5SOUTH 21:29
PROVIDERS: Emergency Medicine; Hospitalist; Internal Medicine; Internal Medicine Gastroenterology; Nurse Practitioner Adult Health; Physician Assistant Medical
PROC: 30233N1 Transfusion of Nonautologous Red Blood Cells into Peripheral Vein, Percutaneous Approach (ICD-10-PCS; principal; 2017-04-23)
DX: D57.00 Hb-SS disease with crisis, unspecified (principal); R50.81 Fever presenting with conditions classified elsewhere; E83.111 Hemochromatosis due to repeated red blood cell transfusions; R17 Unspecified jaundice; I51.7 Cardiomegaly; M16.12 Unilateral primary osteoarthritis, left hip; G89.29 Other chronic pain; F17.210 Nicotine dependence, cigarettes, uncomplicated
CPT/HCPCS: 71020; 71250; 73502; 74176; 80048; 80053; 81003; 82103 90; 82105 90; 82390; 82728; 83516 90; 83605; 83690; 83735; 85025; 85027; 85045; 85610; 85730; 86038; 86256 90; 86308; 86705; 86709; 86803; 86850; 86860; 86870; 86880; 86900; 86901; 86905; 86920; 87040; 87340; 87502; 93306; 94799; 99281; 99285; J1200; J1644; J1885; J1956; J2270; J7030; J7120; P9016

== ENCOUNTER 2017-07-09 16:21 | Inpatient (IN) | payer OTHER ==
[~2017-07-09] VITALS: Ht 170.2 cm; Wt 71.9 kg
[~2017-07-09 16:21] MED LIST changes: +ASPIR 8181 M1 PO; +COD LIVER OIL1 EACH PO; +PERCOCET 5/31 TABLET PO; +TORADOL10 MG PO
[2017-07-09 17:40] LABS: HEMATOCRIT 21.8 % (36.0-46.0); MCH 32.6 PG (29.0-34.0); MCHC 34.9 G/DL (30.0-36.0); MCV 93.6 FL (83-99); MEAN PLAT.VOLUME 11.1 uM^3 (9.5-12.4); NRBC (%) 2.5 /100 WBC (0-0); PLATELET COUNT 421 K/uL (156-360); RBC DIS.WIDTH-CV 25.8 % (11.8-14.6); RBC DIS.WIDTH-SD 80.8 % (39-53); RED BLOOD COUNT 2.33 M/uL (3.80-5.20); WHITE BLOOD COUNT 25.9 K/uL (4.1-10.2)
[2017-07-09 17:48] LABS: CHLORIDE 109 mEq/L (99-109); POTASSIUM 4.7 mEq/L (3.7-5.4); SODIUM 137 mEq/L (136-147)
[2017-07-09 17:51] LABS: GLUCOSE 91 mg/dL (70-99)
[2017-07-09 17:52] LABS: ANION GAP 12 MEQ/L (2-14); TOTAL BILIRUBIN 7.3 mg/dL (0.0-1.0)
[2017-07-09 17:54] LABS: ALKALINE PHOSPHATASE 449 IU/L (3-129); GFR ESTIMATE (CALCULATED) > 59 mL/min/
[2017-07-09 17:55] LABS: UREA NITROGEN (BUN) 14 mg/dL (9-23)
[2017-07-09 18:01] LABS: TROP-I INTERPRETATION NEGATIVE; TROPONIN-I < 0.01 ng/mL (0.0-0.30)
[2017-07-09 18:48] LABS: ADD MIUA? YES; BILIRUBIN NEGATIVE; BLOOD SMALL; COLOR AMBER ((YELLOW)); GLUCOSE (STRIP) NEGATIVE; KETONES NEGATIVE; LEUKOCYTES NEGATIVE; NITRITE NEGATIVE; PROTEIN (STRIP) NEGATIVE
[2017-07-09 18:49] LABS: INTERNAL CONTROL VALID? YES
[2017-07-09 18:50] LABS: BACTERIA RARE /HPF; EPITHELIAL CELLS RARE /HPF; HYALINE CASTS 0-5 /LPF; MUCUS TRACE /LPF; RED BLOOD CELLS 0-5 /HPF (0-5); UCUL ADDED? NO; WHITE BLOOD CELLS 0-5 /HPF (0-5)
[2017-07-09 18:53] LABS: ABS NEUTROPHIL COUNT 13.1; ATYPICAL LYMPHOCYTE 10.9 %; BAND NEUTROPHILS 0.9 % (0-8.0); EOSINOPHIL ABS CT 0.7; EOSINOPHILS 2.6 % (0-5.0); IMM.RETIC FRACTION 22.4 % (3-19); INSTRUMENT ABS NEUTROPHIL CT 11.5 K/uL; LYMPHOCYTES 29.7 % (15.0-45.0); MYELOCYTES 0.4 %; NUCLEATED RBC'S 1.7; RETIC HGB EQUIVALENT 36.4 (28-36); RETICULOCYTE COUNT > 18.0 % (0.5-1.8); SEG.NEUTROPHILS 49.8 % (46.0-76.0); SMUDGE CELLS 7.4
[2017-07-09] MEDS ORDERED: TYLENOL WITH C1 EACH PO (21:56)
[2017-07-09] MEDS ORDERED: ROXICODONE30 MG PO (21:57)
[2017-07-09] MEDS ORDERED: MORPHINE SULFAT30 M2 PO (21:57)
[2017-07-10 07:52] VITALS: BP 113/56
[2017-07-10 08:51] LABS: HEMATOCRIT 19.9 % (36.0-46.0); MCH 33.8 PG (29.0-34.0); MCHC 35.2 G/DL (30.0-36.0); MCV 96.1 FL (83-99); NRBC (%) 2.2 /100 WBC (0-0); PLATELET COUNT 362 K/uL (156-360); RBC DIS.WIDTH-CV 26.1 % (11.8-14.6); RBC DIS.WIDTH-SD 82.8 % (39-53); RED BLOOD COUNT 2.07 M/uL (3.80-5.20); WHITE BLOOD COUNT 23.2 K/uL (4.1-10.2)
[2017-07-10 09:13] LABS: ALKALINE PHOSPHATASE 393 IU/L (3-129); ANION GAP 7 MEQ/L (2-14); CHLORIDE 110 MEQ/L (99-109); GFR ESTIMATE (CALCULATED) > 59 mL/min/; GLUCOSE 109 mg/dL (70-99); POTASSIUM 5.2 MEQ/L (3.7-5.4); SAMPLE HEMOLYSIS CHECK 1; SAMPLE ICTERIC CHECK 1; SAMPLE LIPEMIA CHECK 1; SODIUM 138 MEQ/L (136-147); TOTAL BILIRUBIN 6.2 MG/DL (0.0-1.0); UREA NITROGEN (BUN) 12 mg/dL (9-23)
[2017-07-11 08:10] VITALS: BP 116/58
[2017-07-11 10:17] LABS: HEMATOCRIT 19.7 % (36.0-46.0); MCHC 35.5 G/DL (30.0-36.0); MCV 95.6 FL (83-99); NRBC (%) 1.9 /100 WBC (0-0); RBC DIS.WIDTH-SD 81.9 % (39-53); RED BLOOD COUNT 2.06 M/uL (3.80-5.20); WHITE BLOOD COUNT 19.2 K/uL (4.1-10.2)
[2017-07-11 10:48] LABS: PLAT.SUFFICIENCY ADEQUATE; PLATELET COUNT 358 K/uL (156-360)
[2017-07-11 10:58] LABS: ANION GAP 4 MEQ/L (2-14); CHLORIDE 109 MEQ/L (99-109); GFR ESTIMATE (CALCULATED) > 59 mL/min/; GLUCOSE 93 mg/dL (70-99); POTASSIUM 5.2 MEQ/L (3.7-5.4); SAMPLE HEMOLYSIS CHECK 0; SAMPLE ICTERIC CHECK 1; SAMPLE LIPEMIA CHECK 0; SODIUM 136 MEQ/L (136-147); UREA NITROGEN (BUN) 8 mg/dL (9-23)
[2017-07-11 14:06] VITALS: BP 109/54
[2017-07-11 14:22] VITALS: BP 115/58
[2017-07-11 15:22] VITALS: BP 117/56
[2017-07-11 16:38] VITALS: BP 111/56
[2017-07-11 23:28] VITALS: BP 99/54
[2017-07-12 08:09] VITALS: BP 103/51
[2017-07-12 14:28] LABS: MCH 32.9 PG (29.0-34.0); MEAN PLAT.VOLUME 10.7 uM^3 (9.5-12.4); NRBC (%) 1.6 /100 WBC (0-0); PLATELET COUNT 353 K/uL (156-360); RBC DIS.WIDTH-SD 74.5 % (39-53); RED BLOOD COUNT 2.19 M/uL (3.80-5.20)
[2017-07-12 15:00] LABS: BASOPHIL COUNT 0.1 K/uL (0-0.1); EOSINOPHIL (%) 6.5 % (0-5); EOSINOPHIL COUNT 1.2 K/uL (0-0.3); IMMATURE GRANULOCYTE (%) 0.6 % (0.0-0.7); IMMATURE GRANULOCYTE COUNT 0.1 K/uL; INSTRUMENT ABS NEUTROPHIL CT 6.9 K/uL; LYMPHOCYTE COUNT 7.4 K/uL (1.0-2.8); MONOCYTE (%) 12.8 % (3-12); MONOCYTE COUNT 2.3 K/uL (0-0.8); NEUTROPHIL (%) 38.4 % (45-76); NEUTROPHIL COUNT 6.9 K/uL (1.8-6.4)
[2017-07-12 15:02] LABS: MCV 91.3 FL (83-99)
[2017-07-12 15:04] LABS: ANION GAP 7 MEQ/L (2-14); CHLORIDE 108 MEQ/L (99-109); GFR ESTIMATE (CALCULATED) > 59 mL/min/; GLUCOSE 100 mg/dL (70-99); SAMPLE HEMOLYSIS CHECK 0; SAMPLE ICTERIC CHECK 1; SAMPLE LIPEMIA CHECK 0; SODIUM 137 MEQ/L (136-147); UREA NITROGEN (BUN) 9 mg/dL (9-23)
[2017-07-12 16:25] VITALS: BP 114/57
[2017-07-12 22:19] VITALS: BP 107/53
[2017-07-13] VITALS (7 sets, daily range): BP systolic 93–112; BP diastolic 51–72
[2017-07-13 06:03] LABS: MCH 32.3 PG (29.0-34.0); MCHC 36.5 G/DL (30.0-36.0); MCV 88.5 FL (83-99); MEAN PLAT.VOLUME 10.8 uM^3 (9.5-12.4); NRBC (%) 0.8 /100 WBC (0-0); PLATELET COUNT 326 K/uL (156-360); RBC DIS.WIDTH-CV 22.2 % (11.8-14.6); RED BLOOD COUNT 1.92 M/uL (3.80-5.20); WHITE BLOOD COUNT 19.5 K/uL (4.1-10.2)
[2017-07-14 04:43] VITALS: BP 106/54
[2017-07-14 05:08] VITALS: BP 110/54
[2017-07-14 06:08] VITALS: BP 108/56
[2017-07-14 07:26] VITALS: BP 137/62
[2017-07-14 07:30] VITALS: BP 102/51
[2017-07-14 08:01] LABS: HEMATOCRIT 23.5 % (36.0-46.0); MCV 89.4 FL (83-99)
[2017-07-14 15:45] VITALS: BP 108/53
[2017-07-15 15:28] VITALS: BP 95/51
[2017-07-15 23:28] VITALS: BP 96/50
[2017-07-16 08:00] VITALS: BP 104/52
[2017-07-16 09:55] LABS: HEMATOCRIT 23.6 % (36.0-46.0); MCV 92.2 FL (83-99)
[2017-07-16 16:13] VITALS: BP 104/52
[2017-07-16] MEDS ORDERED: MORPHINE SULFAT30 M2 PO (16:37)
== END 2017-07-16 17:07 | disposition home or self-care (01) | DRG 812 ==
LOC: EME 16:21 → 5EAST 23:48 → ENRESERV 23:48 → EDOF 23:48 → ENRESERV 07-10 00:19 → 5EAST 07-10 01:10
PROVIDERS: Emergency Medicine; Hospitalist; Student in an Organized Health Care Education/Training Program
PROC: 30233N1 Transfusion of Nonautologous Red Blood Cells into Peripheral Vein, Percutaneous Approach (ICD-10-PCS; principal; 2017-07-10)
DX: D57.00 Hb-SS disease with crisis, unspecified (principal); R17 Unspecified jaundice; J98.11 Atelectasis; E27.9 Disorder of adrenal gland, unspecified; E83.111 Hemochromatosis due to repeated red blood cell transfusions; R09.02 Hypoxemia; D64.9 Anemia, unspecified; L29.9 Pruritus, unspecified; F17.210 Nicotine dependence, cigarettes, uncomplicated; I51.7 Cardiomegaly; M79.605 Pain in left leg; M79.604 Pain in right leg; F41.9 Anxiety disorder, unspecified; M54.9 Dorsalgia, unspecified; D72.829 Elevated white blood cell count, unspecified; Z90.49 Acquired absence of other specified parts of digestive tract; Z88.0 Allergy status to penicillin; Z88.5 Allergy status to narcotic agent
CPT/HCPCS: 71020; 71275; 73610; 80048; 80053; 81003; 84484; 84703; 85014; 85018; 85025; 85027; 85045; 85379; 86850; 86860; 86870; 86880; 86900; 86901; 86905; 86920; 87040; 93005; 94799; 99281; 99285; J1200; J1885; J2270; J2405; J7030; P9016

== ENCOUNTER 2017-08-07 21:53 | Inpatient (IN) | payer OTHER ==
[~2017-08-07] VITALS: Ht 170.2 cm; Wt 70.5 kg
[~2017-08-07 21:53] MED LIST changes: +MORPHINE SULFAT30 M2 PO; +ROXICODONE30 MG PO
[2017-08-07 23:55] LABS: CHLORIDE 110 mEq/L (99-109); POTASSIUM 4.6 mEq/L (3.7-5.4); SODIUM 136 mEq/L (136-147)
[2017-08-07 23:57] LABS: GLUCOSE 87 mg/dL (70-99)
[2017-08-08] VITALS (14 sets, daily range): BP systolic 104–128; BP diastolic 54–58
[2017-08-08 00:01] LABS: CREATININE 0.7 mg/dL (0.6-1.3); GFR ESTIMATE (CALCULATED) > 59 mL/min/
[2017-08-08 00:19] LABS: HEMATOCRIT 19.8 % (36.0-46.0); HEMOGLOBIN 6.9 G/DL (11.9-15.5); IMM.RETIC FRACTION 42.7 % (3-19); MCH 32.1 PG (29.0-34.0); MCHC 34.8 G/DL (30.0-36.0); MCV 92.1 FL (83-99); NRBC (%) 0.5 /100 WBC (0-0); RBC DIS.WIDTH-CV 20.6 % (11.8-14.6); RBC DIS.WIDTH-SD 65.5 % (39-53); RED BLOOD COUNT 2.15 M/uL (3.80-5.20); RETIC HGB EQUIVALENT 38.2 (28-36); RETICULOCYTE COUNT > 18.0 % (0.5-1.8); WHITE BLOOD COUNT 35.9 K/uL (4.1-10.2)
[2017-08-08 00:34] LABS: TROP-I INTERPRETATION NEGATIVE; TROPONIN-I < 0.01 ng/mL (0.0-0.30)
[2017-08-08 00:56] LABS: UREA NITROGEN (BUN) 15 mg/dL (9-23)
[2017-08-08 01:14] LABS: PLATELET COUNT UNABLE TO REPORT K/uL (156-360)
[2017-08-08 04:05] LABS: ALBUMIN 3.7 g/dL (3.2-4.8)
[2017-08-08 04:08] LABS: TOTAL PROTEIN 7.6 g/dL (6.4-8.3)
[2017-08-08 04:10] LABS: TOTAL BILIRUBIN 4.6 mg/dL (0.0-1.0)
[2017-08-08 04:11] LABS: ALKALINE PHOSPHATASE 363 IU/L (3-129)
[2017-08-08 04:14] LABS: ALT (GPT) 74 IU/L (3-49); AST (GOT) 103 IU/L (2-34)
[2017-08-08 05:00] LABS: HEMATOCRIT 19.6 % (36.0-46.0); MCH 32.2 PG (29.0-34.0); MCHC 34.7 G/DL (30.0-36.0); MCV 92.9 FL (83-99); NRBC (%) 0.5 /100 WBC (0-0); RBC DIS.WIDTH-CV 20.7 % (11.8-14.6); RBC DIS.WIDTH-SD 66.7 % (39-53); RED BLOOD COUNT 2.11 M/uL (3.80-5.20)
[2017-08-08 05:05] LABS: HEMOGLOBIN 6.8 G/DL (11.9-15.5); WHITE BLOOD COUNT 35.3 K/uL (4.1-10.2)
[2017-08-08 05:37] LABS: PLAT.SUFFICIENCY ADEQUATE; PLATELET COUNT 383 K/uL (156-360)
[2017-08-08 22:32] LABS: HEMATOCRIT 25.3 % (36.0-46.0); MCV 90.4 FL (83-99)
[2017-08-08 22:33] LABS: HEMOGLOBIN 8.8 G/DL (11.9-15.5)
[2017-08-09 01:15] LABS: RETIC HGB EQUIVALENT 32.7 (28-36)
[2017-08-09 01:31] LABS: TOTAL BILIRUBIN 4.9 mg/dL (0.0-1.0)
[2017-08-09 01:34] LABS: RETICULOCYTE COUNT 13.6 % (0.5-1.8)
[2017-08-09 01:34] LABS: DIRECT BILIRUBIN 1.9 mg/dL (0.0-0.3)
[2017-08-09 04:10] VITALS: BP 114/55
[2017-08-09 07:06] VITALS: BP 111/56
[2017-08-09 13:43] LABS: HEMATOCRIT 24.2 % (36.0-46.0); HEMOGLOBIN 8.1 G/DL (11.9-15.5); MCH 31.3 PG (29.0-34.0); MCHC 33.5 G/DL (30.0-36.0); MCV 93.4 FL (83-99); NRBC (%) 0.3 /100 WBC (0-0); RBC DIS.WIDTH-CV 20.4 % (11.8-14.6); RBC DIS.WIDTH-SD 65.4 % (39-53)
[2017-08-09 13:46] LABS: RED BLOOD COUNT 2.59 M/uL (3.80-5.20); WHITE BLOOD COUNT 41.3 K/uL (4.1-10.2)
[2017-08-09 13:47] LABS: ALBUMIN 3.6 G/DL (3.2-4.8); CHLORIDE 112 MEQ/L (99-109); DIRECT BILIRUBIN 1.4 mg/dL (0.0-0.3); POTASSIUM 5.1 MEQ/L (3.7-5.4); SODIUM 139 MEQ/L (136-147); TOTAL BILIRUBIN 4.9 MG/DL (0.0-1.0)
[2017-08-09 13:52] LABS: ALKALINE PHOSPHATASE 312 IU/L (3-129); ALT (GPT) 55 IU/L (3-49); AST (GOT) 58 IU/L (2-34); CREATININE 0.6 MG/DL (0.6-1.3); GFR ESTIMATE (CALCULATED) > 59 mL/min/; GLUCOSE 107 mg/dL (70-99); TOTAL PROTEIN 6.8 G/DL (6.4-8.3); UREA NITROGEN (BUN) 14 mg/dL (9-23)
[2017-08-09 14:11] LABS: PLATELET COUNT 352 K/uL (156-360)
[2017-08-09 15:41] VITALS: BP 109/56
[2017-08-09 19:48] VITALS: BP 120/67
[2017-08-09 23:21] VITALS: BP 120/57
[2017-08-10 03:00] VITALS: BP 126/61
[2017-08-10 06:01] LABS: HEMATOCRIT 23.8 % (36.0-46.0); HEMOGLOBIN 7.7 G/DL (11.9-15.5); MCHC 32.4 G/DL (30.0-36.0); NRBC (%) 0.3 /100 WBC (0-0); RBC DIS.WIDTH-CV 19.9 % (11.8-14.6); RBC DIS.WIDTH-SD 68.1 % (39-53); RED BLOOD COUNT 2.48 M/uL (3.80-5.20); WHITE BLOOD COUNT 29.5 K/uL (4.1-10.2)
[2017-08-10 06:57] LABS: PLAT.SUFFICIENCY ADEQUATE; PLATELET COUNT 259 K/uL (156-360)
[2017-08-10 07:36] VITALS: BP 106/51
[2017-08-10 09:07] LABS: CHLORIDE 115 MEQ/L (99-109); CREATININE 0.6 MG/DL (0.6-1.3); GFR ESTIMATE (CALCULATED) > 59 mL/min/; GLUCOSE 79 mg/dL (70-99); POTASSIUM 5.2 MEQ/L (3.7-5.4); SODIUM 141 MEQ/L (136-147); UREA NITROGEN (BUN) 17 mg/dL (9-23)
[2017-08-10 11:31] VITALS: BP 108/53
[2017-08-10 15:33] VITALS: BP 111/57
[2017-08-10 20:11] VITALS: BP 117/57
[2017-08-10 23:36] VITALS: BP 105/52
[2017-08-11] VITALS (12 sets, daily range): BP systolic 117–144; BP diastolic 57–68
[2017-08-11 05:52] LABS: BASOPHIL (%) 0.5 % (0-1); BASOPHIL COUNT 0.1 K/uL (0-0.1); EOSINOPHIL COUNT 1.8 K/uL (0-0.3); IMMATURE GRANULOCYTE (%) 0.6 % (0.0-0.7); LYMPHOCYTE (%) 40.1 % (15-42); LYMPHOCYTE COUNT 12.2 K/uL (1.0-2.8); MONOCYTE (%) 8.5 % (3-12); MONOCYTE COUNT 2.6 K/uL (0-0.8); NEUTROPHIL (%) 44.3 % (45-76); NEUTROPHIL COUNT 13.5 K/uL (1.8-6.4); PLATELET COUNT 230 K/uL (156-360)
[2017-08-11 06:14] LABS: HEMATOCRIT 23.1 % (36.0-46.0); HEMOGLOBIN 7.4 G/DL (11.9-15.5); MCH 30.5 PG (29.0-34.0); MCV 95.1 FL (83-99); NRBC (%) 0.4 /100 WBC (0-0); RBC DIS.WIDTH-CV 18.8 % (11.8-14.6); RBC DIS.WIDTH-SD 64.6 % (39-53); RED BLOOD COUNT 2.43 M/uL (3.80-5.20)
[2017-08-11 06:17] LABS: WHITE BLOOD COUNT 30.4 K/uL (4.1-10.2)
[2017-08-11 06:26] LABS: ALBUMIN 3.5 G/DL (3.2-4.8); ALKALINE PHOSPHATASE 272 IU/L (3-129); ALT (GPT) 41 IU/L (3-49); AST (GOT) 40 IU/L (2-34); CHLORIDE 110 MEQ/L (99-109); CREATININE 0.6 MG/DL (0.6-1.3); GFR ESTIMATE (CALCULATED) > 59 mL/min/; POTASSIUM 4.7 MEQ/L (3.7-5.4); SODIUM 138 MEQ/L (136-147); TOTAL BILIRUBIN 5.1 MG/DL (0.0-1.0); TOTAL PROTEIN 6.9 G/DL (6.4-8.3); UREA NITROGEN (BUN) 13 mg/dL (9-23)
[2017-08-11 06:27] LABS: GLUCOSE 104 mg/dL (70-99)
[2017-08-11] MEDS ORDERED: ROXICODONE30 MG PO (10:50)
[2017-08-12 03:36] VITALS: BP 123/57
[2017-08-12 07:30] VITALS: BP 122/58
[2017-08-12 09:46] LABS: HEMATOCRIT 29.7 % (36.0-46.0); HEMOGLOBIN 9.8 G/DL (11.9-15.5); MCH 30.5 PG (29.0-34.0); MCV 92.5 FL (83-99); NRBC (%) 0.3 /100 WBC (0-0); RBC DIS.WIDTH-CV 17.9 % (11.8-14.6); RBC DIS.WIDTH-SD 59.6 % (39-53); RED BLOOD COUNT 3.21 M/uL (3.80-5.20); WHITE BLOOD COUNT 23.1 K/uL (4.1-10.2)
[2017-08-12 09:54] LABS: CHLORIDE 107 MEQ/L (99-109); CREATININE 0.6 MG/DL (0.6-1.3); GFR ESTIMATE (CALCULATED) > 59 mL/min/; GLUCOSE 118 mg/dL (70-99); POTASSIUM 4.5 MEQ/L (3.7-5.4); SODIUM 137 MEQ/L (136-147); UREA NITROGEN (BUN) 9 mg/dL (9-23)
[2017-08-12 10:22] LABS: PLAT.SUFFICIENCY ADEQUATE; PLATELET COUNT 288 K/uL (156-360)
[2017-08-12 15:30] VITALS: BP 109/55
[2017-08-12 23:24] VITALS: BP 113/55
[2017-08-13 03:34] VITALS: BP 129/60
[2017-08-13 06:18] LABS: HEMATOCRIT 26.9 % (36.0-46.0); HEMOGLOBIN 8.8 G/DL (11.9-15.5); MCH 30.4 PG (29.0-34.0); MCHC 32.7 G/DL (30.0-36.0); MCV 93.1 FL (83-99); NRBC (%) 0.4 /100 WBC (0-0); PLATELET COUNT 246 K/uL (156-360); RBC DIS.WIDTH-CV 17.5 % (11.8-14.6); RED BLOOD COUNT 2.89 M/uL (3.80-5.20); WHITE BLOOD COUNT 19.2 K/uL (4.1-10.2)
[2017-08-13 06:49] LABS: CHLORIDE 107 MEQ/L (99-109); CREATININE 0.6 MG/DL (0.6-1.3); GFR ESTIMATE (CALCULATED) > 59 mL/min/; GLUCOSE 89 mg/dL (70-99); SODIUM 139 MEQ/L (136-147); UREA NITROGEN (BUN) 10 mg/dL (9-23)
[2017-08-13 08:45] VITALS: BP 110/53
[2017-08-13 11:44] VITALS: BP 111/57
[2017-08-13 16:39] VITALS: BP 122/60
[2017-08-13 19:45] VITALS: BP 106/53
[2017-08-13 23:12] VITALS: BP 132/60
[2017-08-14 03:45] VITALS: BP 115/55
[2017-08-14 07:28] VITALS: BP 120/58
[2017-08-14 07:47] LABS: HEMATOCRIT 26.1 % (36.0-46.0); HEMOGLOBIN 8.6 G/DL (11.9-15.5); MCH 30.6 PG (29.0-34.0); MCV 92.9 FL (83-99); NRBC (%) 0.3 /100 WBC (0-0); PLATELET COUNT 245 K/uL (156-360); RBC DIS.WIDTH-CV 17.2 % (11.8-14.6); RBC DIS.WIDTH-SD 57.4 % (39-53); RED BLOOD COUNT 2.81 M/uL (3.80-5.20); WHITE BLOOD COUNT 19.7 K/uL (4.1-10.2)
[2017-08-14 08:10] LABS: CHLORIDE 104 MEQ/L (99-109); CREATININE 0.7 MG/DL (0.6-1.3); GFR ESTIMATE (CALCULATED) > 59 mL/min/; GLUCOSE 98 mg/dL (70-99); POTASSIUM 4.7 MEQ/L (3.7-5.4); SODIUM 138 MEQ/L (136-147); UREA NITROGEN (BUN) 12 mg/dL (9-23)
[2017-08-14 11:48] VITALS: BP 111/53
[2017-08-15] MEDS ORDERED: TYLENOL W/COD1 COMB1 PO (23:55)
[2017-08-15] MEDS ORDERED: HYDROXYUREA500 MG PO (23:58)
== END 2017-08-14 15:12 | disposition left against medical advice (07) | DRG 811 ==
LOC: EME 21:53 → EDOF 08-08 03:19 → 3EAST 08-08 03:19 → ENRESERV 08-08 03:29 → 3EAST 08-08 05:22
PROVIDERS: Emergency Medicine; Hospitalist; Physician Assistant Medical
PROC: 30233N1 Transfusion of Nonautologous Red Blood Cells into Peripheral Vein, Percutaneous Approach (ICD-10-PCS; principal; 2017-08-11)
DX: D57.01 Hb-SS disease with acute chest syndrome (principal); J18.9 Pneumonia, unspecified organism; F17.210 Nicotine dependence, cigarettes, uncomplicated; M79.606 Pain in leg, unspecified; M54.5 Low back pain; E83.111 Hemochromatosis due to repeated red blood cell transfusions; R74.0 Nonspecific elevation of levels of transaminase and lactic acid dehydrogenase [LDH]; E27.9 Disorder of adrenal gland, unspecified; I51.7 Cardiomegaly; R05 Cough; R10.9 Unspecified abdominal pain; L29.9 Pruritus, unspecified; Z90.49 Acquired absence of other specified parts of digestive tract; Z79.82 Long term (current) use of aspirin; Z88.0 Allergy status to penicillin; Z83.2 Family history of diseases of the blood and blood-forming organs and certain disorders involving the immune mechanism; Z90.81 Acquired absence of spleen; E87.70 Fluid overload, unspecified
CPT/HCPCS: 71020; 71260; 74000; 74176; 80048; 80053; 80076; 81003; 82247; 82248; 84075; 84450; 84460; 84484; 85014; 85018; 85025; 85027; 86850; 86860; 86870; 86880; 86900; 86901; 86905; 86920; 87040; 87070; 87205; 87449; 87502; 93005; 94640; 94760; 94799; 99281; 99285; J1200; J1644; J1956; J2270; J2930; J7030; P9016

== ENCOUNTER 2017-08-15 16:44 | Inpatient (IN) | payer OTHER ==
[~2017-08-15] VITALS: Ht 170.2 cm; Wt 73.0 kg
[2017-08-15 17:54] LABS: HEMATOCRIT 29.6 % (36.0-46.0); HEMOGLOBIN 9.9 G/DL (11.9-15.5); MCH 30.7 PG (29.0-34.0); MCHC 33.4 G/DL (30.0-36.0); MCV 91.6 FL (83-99); NRBC (%) 0.2 /100 WBC (0-0); RBC DIS.WIDTH-SD 56.4 % (39-53); RED BLOOD COUNT 3.23 M/uL (3.80-5.20); WHITE BLOOD COUNT 16.6 K/uL (4.1-10.2)
[2017-08-15 18:17] LABS: TROP-I INTERPRETATION NEGATIVE; TROPONIN-I < 0.01 ng/mL (0.0-0.30)
[2017-08-15 18:28] LABS: CHLORIDE 106 mEq/L (99-109); POTASSIUM 4.1 mEq/L (3.7-5.4); SODIUM 139 mEq/L (136-147)
[2017-08-15 18:30] LABS: GLUCOSE 113 mg/dL (70-99)
[2017-08-15 18:34] LABS: CREATININE 0.7 mg/dL (0.6-1.3); GFR ESTIMATE (CALCULATED) > 59 mL/min/
[2017-08-15 18:35] LABS: UREA NITROGEN (BUN) 14 mg/dL (9-23)
[2017-08-15 18:47] LABS: PLAT.SUFFICIENCY ADEQUATE; PLATELET COUNT 263 K/uL (156-360)
[2017-08-15 19:40] LABS: ABSOLUTE RETICULOCYTE CT. 0.1 M/uL (0.02-0.08); IMM.RETIC FRACTION 21.9 % (3-19); RETIC HGB EQUIVALENT 35.9 (28-36)
[2017-08-15 19:44] LABS: RETICULOCYTE COUNT 3.1 % (0.5-1.8)
[2017-08-15] MEDS ORDERED: TYLENOL W/COD1 COMB1 PO (23:55)
[2017-08-15] MEDS ORDERED: HYDROXYUREA500 MG PO (23:58)
[2017-08-16 06:52] LABS: HEMATOCRIT 26.7 % (36.0-46.0); HEMOGLOBIN 8.9 G/DL (11.9-15.5); MCH 30.5 PG (29.0-34.0); MCHC 33.3 G/DL (30.0-36.0); MCV 91.4 FL (83-99); NRBC (%) 0.3 /100 WBC (0-0); PLATELET COUNT 284 K/uL (156-360); RBC DIS.WIDTH-CV 16.8 % (11.8-14.6); RBC DIS.WIDTH-SD 56.2 % (39-53); RED BLOOD COUNT 2.92 M/uL (3.80-5.20); WHITE BLOOD COUNT 18.4 K/uL (4.1-10.2)
[2017-08-16 07:35] LABS: TROP-I INTERPRETATION NEGATIVE; TROPONIN-I < 0.01 ng/mL (0.0-0.30)
[2017-08-16 12:35] VITALS: BP 109/62
[2017-08-16 15:39] VITALS: BP 112/61
[2017-08-16 23:56] VITALS: BP 115/63
[2017-08-17 08:00] VITALS: BP 111/59
[2017-08-17 10:30] LABS: BASOPHIL (%) 0.9 % (0-1); BASOPHIL COUNT 0.2 K/uL (0-0.1); EOSINOPHIL (%) 7.1 % (0-5); EOSINOPHIL COUNT 1.1 K/uL (0-0.3); HEMATOCRIT 28.9 % (36.0-46.0); HEMOGLOBIN 9.4 G/DL (11.9-15.5); IMMATURE GRANULOCYTE (%) 0.4 % (0.0-0.7); LYMPHOCYTE (%) 39.8 % (15-42); LYMPHOCYTE COUNT 6.3 K/uL (1.0-2.8); MCH 30.9 PG (29.0-34.0); MCHC 32.5 G/DL (30.0-36.0); MCV 95.1 FL (83-99); MONOCYTE (%) 11.1 % (3-12); MONOCYTE COUNT 1.8 K/uL (0-0.8); NEUTROPHIL (%) 40.7 % (45-76); NEUTROPHIL COUNT 6.5 K/uL (1.8-6.4); NRBC (%) 0.1 /100 WBC (0-0); PLATELET COUNT 299 K/uL (156-360); RBC DIS.WIDTH-CV 16.9 % (11.8-14.6); RED BLOOD COUNT 3.04 M/uL (3.80-5.20); WHITE BLOOD COUNT 15.9 K/uL (4.1-10.2)
[2017-08-17 10:55] LABS: CHLORIDE 104 MEQ/L (99-109); CREATININE 0.6 MG/DL (0.6-1.3); GFR ESTIMATE (CALCULATED) > 59 mL/min/; GLUCOSE 113 mg/dL (70-99); POTASSIUM 4.5 MEQ/L (3.7-5.4); SODIUM 134 MEQ/L (136-147); UREA NITROGEN (BUN) 10 mg/dL (9-23)
[2017-08-17 16:00] VITALS: BP 113/56
[2017-08-17 23:38] VITALS: BP 125/63
[2017-08-18 06:00] LABS: BASOPHIL COUNT 0.2 K/uL (0-0.1); EOSINOPHIL (%) 7.1 % (0-5); EOSINOPHIL COUNT 1.2 K/uL (0-0.3); HEMATOCRIT 26.2 % (36.0-46.0); HEMOGLOBIN 8.5 G/DL (11.9-15.5); IMMATURE GRANULOCYTE (%) 0.2 % (0.0-0.7); LYMPHOCYTE (%) 46.7 % (15-42); MCH 30.6 PG (29.0-34.0); MCHC 32.4 G/DL (30.0-36.0); MCV 94.2 FL (83-99); MONOCYTE (%) 12.4 % (3-12); MONOCYTE COUNT 2.1 K/uL (0-0.8); NEUTROPHIL (%) 32.6 % (45-76); NEUTROPHIL COUNT 5.6 K/uL (1.8-6.4); PLATELET COUNT 318 K/uL (156-360); RBC DIS.WIDTH-CV 16.7 % (11.8-14.6); RBC DIS.WIDTH-SD 57.8 % (39-53); RED BLOOD COUNT 2.78 M/uL (3.80-5.20); WHITE BLOOD COUNT 17.2 K/uL (4.1-10.2)
[2017-08-18 06:27] LABS: CHLORIDE 105 MEQ/L (99-109); CREATININE 0.8 MG/DL (0.6-1.3); GFR ESTIMATE (CALCULATED) > 59 mL/min/; GLUCOSE 101 mg/dL (70-99); POTASSIUM 4.6 MEQ/L (3.7-5.4); SODIUM 138 MEQ/L (136-147); UREA NITROGEN (BUN) 16 mg/dL (9-23)
[2017-08-18 07:30] VITALS: BP 129/63
[2017-08-18] MEDS ORDERED: ROXICODONE30 MG PO (13:36)
[2017-08-18 16:05] VITALS: BP 127/61
== END 2017-08-18 17:15 | disposition home or self-care (01) | DRG 811 ==
LOC: EME 16:44 → 5SOUTH 08-16 00:15 → EDOF 08-16 00:15 → ENRESERV 08-16 00:18 → 5SOUTH 08-16 12:18
PROVIDERS: Emergency Medicine; Physician Assistant
DX: D57.00 Hb-SS disease with crisis, unspecified (principal); J18.9 Pneumonia, unspecified organism; J98.11 Atelectasis; Z90.49 Acquired absence of other specified parts of digestive tract; F17.200 Nicotine dependence, unspecified, uncomplicated; E83.111 Hemochromatosis due to repeated red blood cell transfusions; Z79.82 Long term (current) use of aspirin
CPT/HCPCS: 71046; 71250; 80048; 84484; 85025; 85027; 85046; 93005; 99281; 99285; J1200; J1885; J2270; J7030

== ENCOUNTER 2017-09-09 15:14 | Emergency (ER) | payer OTHER ==
[~2017-09-09] VITALS: Ht 170.2 cm; Wt 71.3 kg
[2017-09-09 22:57] LABS: BASOPHIL (%) 0.5 % (0-1); BASOPHIL COUNT 0.2 K/uL (0-0.1); EOSINOPHIL (%) 2.2 % (0-5); EOSINOPHIL COUNT 0.7 K/uL (0-0.3); HEMATOCRIT 23.5 % (36.0-46.0); HEMOGLOBIN 8.3 G/DL (11.9-15.5); IMMATURE GRANULOCYTE (%) 1.3 % (0.0-0.7); LYMPHOCYTE (%) 20.2 % (15-42); LYMPHOCYTE COUNT 6.4 K/uL (1.0-2.8); MCH 30.6 PG (29.0-34.0); MCHC 35.3 G/DL (30.0-36.0); MONOCYTE (%) 14.9 % (3-12); MONOCYTE COUNT 4.7 K/uL (0-0.8); NEUTROPHIL (%) 60.9 % (45-76); NEUTROPHIL COUNT 19.3 K/uL (1.8-6.4); NRBC (%) 0.3 /100 WBC (0-0); RBC DIS.WIDTH-CV 17.5 % (11.8-14.6); RBC DIS.WIDTH-SD 54.2 % (39-53); RED BLOOD COUNT 2.71 M/uL (3.80-5.20); WHITE BLOOD COUNT 29.5 K/uL (4.1-10.2)
[2017-09-09 22:58] LABS: MCV 86.7 FL (83-99)
[2017-09-09] MEDS ORDERED: TESSALON PERLE100 MG PO (23:31)
[2017-09-09] MEDS ORDERED: DOXYCYCLINE MO100 MG PO (23:31)
[2017-09-09 23:51] LABS: PLATELET CLUMPS PRESENT - PLATELET COUNT APPEARS ADQ.
[2017-09-10] VITALS: BP 129/57
[2017-09-11] MEDS ORDERED: OXYCODONE HCL30 MG PO (01:20)
[2017-09-11] MEDS ORDERED: ACETAMINOPHEN-1 EAC1 PO (01:22)
== END 2017-09-10 00:15 | disposition home or self-care (01) ==
LOC: EME 15:14
PROVIDERS: Physician Assistant; Physician Assistant Medical
DX: B34.9 Viral infection, unspecified (principal); D72.829 Elevated white blood cell count, unspecified; D57.1 Sickle-cell disease without crisis; Z87.01 Personal history of pneumonia (recurrent); Z87.891 Personal history of nicotine dependence; Z88.0 Allergy status to penicillin; Z88.5 Allergy status to narcotic agent
CPT/HCPCS: 71046; 80048; 85025; 87502; 93005; 99281; 99285; J1885; J2270

== ENCOUNTER 2017-09-10 20:00 | Inpatient (IN) | payer OTHER ==
[~2017-09-10] VITALS: Ht 170.2 cm; Wt 69.5 kg
[~2017-09-10 20:00] MED LIST changes: +DOXYCYCLINE MO100 MG PO; +TESSALON PERLE100 MG PO
[2017-09-10 21:10] LABS: HEMATOCRIT 22.1 % (36.0-46.0); HEMOGLOBIN 7.8 G/DL (11.9-15.5); IMM.RETIC FRACTION 23.5 % (3-19); MCH 30.6 PG (29.0-34.0); MCHC 35.3 G/DL (30.0-36.0); MCV 86.7 FL (83-99); NRBC (%) 0.4 /100 WBC (0-0); RBC DIS.WIDTH-CV 17.2 % (11.8-14.6); RBC DIS.WIDTH-SD 53.1 % (39-53); RED BLOOD COUNT 2.55 M/uL (3.80-5.20); RETIC HGB EQUIVALENT 35.7 (28-36); WHITE BLOOD COUNT 26.2 K/uL (4.1-10.2)
[2017-09-10 21:11] LABS: RETICULOCYTE COUNT 6.5 % (0.5-1.8)
[2017-09-10 21:21] LABS: CHLORIDE 106 mEq/L (99-109); POTASSIUM 5.3 mEq/L (3.7-5.4); SODIUM 134 mEq/L (136-147)
[2017-09-10 21:22] LABS: GLUCOSE 101 mg/dL (70-99)
[2017-09-10 21:26] LABS: CREATININE 0.9 mg/dL (0.6-1.3); GFR ESTIMATE (CALCULATED) > 59 mL/min/
[2017-09-10 21:27] LABS: UREA NITROGEN (BUN) 25 mg/dL (9-23)
[2017-09-10 21:59] LABS: LACTATE DEHYDROGENASE 343 IU/L (20-246)
[2017-09-10 22:08] LABS: PLAT.SUFFICIENCY ADEQUATE; PLATELET COUNT 338 K/uL (156-360)
[2017-09-11 00:03] LABS: ALKALINE PHOSPHATASE 443 IU/L (3-129); ALT (GPT) 79 IU/L (3-49); AST (GOT) 110 IU/L (2-34); DIRECT BILIRUBIN 3.6 mg/dL (0.0-0.3); LIPASE 149 U/L (1.0-51.0); MAGNESIUM 2.2 mg/dl (1.3-2.7); PHOSPHORUS 3.2 mg/dL (2.5-4.9); TOTAL BILIRUBIN 8.7 MG/DL (0.0-1.0); TOTAL PROTEIN 7.7 G/DL (6.4-8.3)
[2017-09-11] MEDS ORDERED: OXYCODONE HCL30 MG PO (01:20)
[2017-09-11] MEDS ORDERED: ACETAMINOPHEN-1 EAC1 PO (01:22)
[2017-09-11 04:40] VITALS: BP 130/63
[2017-09-11 05:44] VITALS: BP 129/62
[2017-09-11 08:00] VITALS: BP 114/52
[2017-09-11 08:30] LABS: HEMATOCRIT 21.6 % (36.0-46.0); HEMOGLOBIN 7.4 G/DL (11.9-15.5); MCH 30.3 PG (29.0-34.0); MCHC 34.3 G/DL (30.0-36.0); MCV 88.5 FL (83-99); NRBC (%) 0.4 /100 WBC (0-0); RED BLOOD COUNT 2.44 M/uL (3.80-5.20); WHITE BLOOD COUNT 23.4 K/uL (4.1-10.2)
[2017-09-11 08:59] LABS: PLAT.SUFFICIENCY ADEQUATE; PLATELET COUNT 315 K/uL (156-360)
[2017-09-11 09:17] LABS: CHLORIDE 106 MEQ/L (99-109); CREATININE 0.7 MG/DL (0.6-1.3); GFR ESTIMATE (CALCULATED) > 59 mL/min/; GLUCOSE 104 mg/dL (70-99); POTASSIUM 5.3 MEQ/L (3.7-5.4); SODIUM 135 MEQ/L (136-147); UREA NITROGEN (BUN) 18 mg/dL (9-23)
[2017-09-11 11:55] VITALS: BP 100/53
[2017-09-11 12:15] LABS: APPEARANCE CLEAR ((CLEAR)); BILIRUBIN NEGATIVE; BLOOD NEGATIVE; COLOR AMBER ((YELLOW)); GLUCOSE (STRIP) NEGATIVE; KETONES NEGATIVE; LEUKOCYTES NEGATIVE; NITRITE NEGATIVE; PROTEIN (STRIP) NEGATIVE; SPECIFIC GRAVITY 1.009 (1.000-1.030)
[2017-09-11 16:05] VITALS: BP 106/53
[2017-09-11 23:39] VITALS: BP 120/58
[2017-09-12] VITALS (10 sets, daily range): BP systolic 97–122; BP diastolic 51–59
[2017-09-12 14:08] LABS: MCH 29.6 PG (29.0-34.0); MCHC 33.2 G/DL (30.0-36.0); MCV 89.2 FL (83-99); NRBC (%) 0.5 /100 WBC (0-0); PLATELET COUNT 293 K/uL (156-360); RBC DIS.WIDTH-CV 17.2 % (11.8-14.6); RBC DIS.WIDTH-SD 54.9 % (39-53); RED BLOOD COUNT 2.13 M/uL (3.80-5.20); WHITE BLOOD COUNT 17.7 K/uL (4.1-10.2)
[2017-09-12 14:16] LABS: HEMOGLOBIN 6.3 G/DL (11.9-15.5)
[2017-09-12 14:32] LABS: CHLORIDE 106 MEQ/L (99-109); CREATININE 0.6 MG/DL (0.6-1.3); GFR ESTIMATE (CALCULATED) > 59 mL/min/; GLUCOSE 103 mg/dL (70-99); POTASSIUM 4.7 MEQ/L (3.7-5.4); SODIUM 135 MEQ/L (136-147); UREA NITROGEN (BUN) 10 mg/dL (9-23)
[2017-09-12 14:38] LABS: ANISOCYTOSIS 1+; BASOPHIL (%) 0.7 % (0-1); BASOPHIL COUNT 0.1 K/uL (0-0.1); EOSINOPHIL (%) 1.8 % (0-5); EOSINOPHIL COUNT 0.3 K/uL (0-0.3); HYPOCHROMASIA 2+; IMMATURE GRANULOCYTE (%) 0.6 % (0.0-0.7); LYMPHOCYTE (%) 47.1 % (15-42); LYMPHOCYTE COUNT 8.3 K/uL (1.0-2.8); MACROCYTES 1+; MONOCYTE (%) 17.6 % (3-12); MONOCYTE COUNT 3.1 K/uL (0-0.8); NEUTROPHIL (%) 32.2 % (45-76); NEUTROPHIL COUNT 5.7 K/uL (1.8-6.4); TARGET CELLS 1+
[2017-09-13 00:11] VITALS: BP 110/54
[2017-09-13 00:54] VITALS: BP 117/58
[2017-09-13 07:15] VITALS: BP 120/60
[2017-09-13 09:40] LABS: BASOPHIL (%) 0.7 % (0-1); BASOPHIL COUNT 0.1 K/uL (0-0.1); EOSINOPHIL (%) 3.3 % (0-5); EOSINOPHIL COUNT 0.6 K/uL (0-0.3); HEMATOCRIT 26.4 % (36.0-46.0); IMMATURE GRANULOCYTE (%) 0.7 % (0.0-0.7); LYMPHOCYTE (%) 50.1 % (15-42); LYMPHOCYTE COUNT 9.1 K/uL (1.0-2.8); MCH 29.9 PG (29.0-34.0); MCHC 34.1 G/DL (30.0-36.0); MCV 87.7 FL (83-99); MONOCYTE (%) 12.7 % (3-12); MONOCYTE COUNT 2.3 K/uL (0-0.8); NEUTROPHIL (%) 32.5 % (45-76); NEUTROPHIL COUNT 5.9 K/uL (1.8-6.4); NRBC (%) 0.6 /100 WBC (0-0); PLATELET COUNT 291 K/uL (156-360); RBC DIS.WIDTH-CV 16.4 % (11.8-14.6); RBC DIS.WIDTH-SD 51.4 % (39-53); RED BLOOD COUNT 3.01 M/uL (3.80-5.20); WHITE BLOOD COUNT 18.1 K/uL (4.1-10.2)
[2017-09-13 11:52] VITALS: BP 118/64
[2017-09-13 15:30] VITALS: BP 110/53
[2017-09-13 19:54] VITALS: BP 93/50
[2017-09-14] VITALS (7 sets, daily range): BP systolic 93–122; BP diastolic 46–65
[2017-09-15 03:22] VITALS: BP 111/62
[2017-09-15 07:22] VITALS: BP 129/68
[2017-09-15 09:02] LABS: HEMATOCRIT 25.9 % (36.0-46.0); HEMOGLOBIN 8.4 G/DL (11.9-15.5); MCH 29.7 PG (29.0-34.0); MCHC 32.4 G/DL (30.0-36.0); MCV 91.5 FL (83-99); NRBC (%) 0.5 /100 WBC (0-0); RBC DIS.WIDTH-CV 17.5 % (11.8-14.6); RBC DIS.WIDTH-SD 57.5 % (39-53); RED BLOOD COUNT 2.83 M/uL (3.80-5.20); WHITE BLOOD COUNT 16.5 K/uL (4.1-10.2)
[2017-09-15 09:34] LABS: PLAT.SUFFICIENCY ADEQUATE; PLATELET COUNT 281 K/uL (156-360)
[2017-09-15 16:27] VITALS: BP 110/56
[2017-09-15 23:44] VITALS: BP 115/58
[2017-09-16 07:44] VITALS: BP 131/58
[2017-09-16 11:43] LABS: HEMATOCRIT 26.4 % (36.0-46.0); HEMOGLOBIN 8.4 G/DL (11.9-15.5); MCH 29.1 PG (29.0-34.0); MCHC 31.8 G/DL (30.0-36.0); MCV 91.3 FL (83-99); NRBC (%) 0.5 /100 WBC (0-0); RBC DIS.WIDTH-CV 17.6 % (11.8-14.6); RBC DIS.WIDTH-SD 58.5 % (39-53); RED BLOOD COUNT 2.89 M/uL (3.80-5.20); WHITE BLOOD COUNT 18.3 K/uL (4.1-10.2)
[2017-09-16 12:19] LABS: PLAT.SUFFICIENCY ADEQUATE; PLATELET COUNT 276 K/uL (156-360)
[2017-09-16 12:24] LABS: CHLORIDE 103 MEQ/L (99-109); CREATININE 0.5 MG/DL (0.6-1.3); GFR ESTIMATE (CALCULATED) > 59 mL/min/; GLUCOSE 101 mg/dL (70-99); POTASSIUM 5.3 MEQ/L (3.7-5.4); SODIUM 133 MEQ/L (136-147); UREA NITROGEN (BUN) 8 mg/dL (9-23)
[2017-09-16 17:12] VITALS: BP 122/62
[2017-09-17 00:35] VITALS: BP 107/51
[2017-09-17 06:56] LABS: HEMATOCRIT 27.2 % (36.0-46.0); HEMOGLOBIN 8.5 G/DL (11.9-15.5); MCHC 31.3 G/DL (30.0-36.0); MCV 92.8 FL (83-99); NRBC (%) 0.6 /100 WBC (0-0); RBC DIS.WIDTH-CV 17.7 % (11.8-14.6); RBC DIS.WIDTH-SD 60.9 % (39-53); RED BLOOD COUNT 2.93 M/uL (3.80-5.20); WHITE BLOOD COUNT 18.2 K/uL (4.1-10.2)
[2017-09-17 07:27] LABS: PLAT.SUFFICIENCY ADEQUATE; PLATELET COUNT 296 K/uL (156-360)
[2017-09-17 08:20] VITALS: BP 108/57
[2017-09-17 16:27] VITALS: BP 100/55
[2017-09-17 23:16] VITALS: BP 110/56
[2017-09-18 02:30] VITALS: BP 147/68
[2017-09-18 08:12] VITALS: BP 99/53
[2017-09-18 08:46] LABS: HEMATOCRIT 29.6 % (36.0-46.0); HEMOGLOBIN 9.4 G/DL (11.9-15.5); MCH 29.5 PG (29.0-34.0); MCHC 31.8 G/DL (30.0-36.0); MCV 92.8 FL (83-99); NRBC (%) 0.7 /100 WBC (0-0); RBC DIS.WIDTH-CV 17.8 % (11.8-14.6); RBC DIS.WIDTH-SD 60.3 % (39-53); RED BLOOD COUNT 3.19 M/uL (3.80-5.20); WHITE BLOOD COUNT 20.8 K/uL (4.1-10.2)
[2017-09-18 09:11] LABS: CHLORIDE 104 MEQ/L (99-109); CREATININE 0.7 MG/DL (0.6-1.3); GFR ESTIMATE (CALCULATED) > 59 mL/min/; GLUCOSE 96 mg/dL (70-99); SODIUM 133 MEQ/L (136-147); UREA NITROGEN (BUN) 16 mg/dL (9-23)
[2017-09-18 09:13] LABS: PLAT.SUFFICIENCY ADEQUATE; PLATELET COUNT 323 K/uL (156-360)
== END 2017-09-18 13:08 | disposition home or self-care (01) | DRG 812 ==
LOC: EME 20:00 → 2EASTP 09-11 01:48 → EDOF 09-11 01:48 → ENRESERV 09-11 01:58 → 2EASTP 09-11 03:37 → EDOF 09-11 03:37 → ENRESERV 09-15 13:07 → 5EAST 09-15 16:13
PROVIDERS: Hospitalist; Nurse Practitioner Adult Health; Student in an Organized Health Care Education/Training Program
PROC: 30233N1 Transfusion of Nonautologous Red Blood Cells into Peripheral Vein, Percutaneous Approach (ICD-10-PCS; principal; 2017-09-12)
DX: D57.01 Hb-SS disease with acute chest syndrome (principal); J98.11 Atelectasis; R17 Unspecified jaundice; E83.111 Hemochromatosis due to repeated red blood cell transfusions; R50.81 Fever presenting with conditions classified elsewhere; B34.9 Viral infection, unspecified; E86.0 Dehydration; E87.5 Hyperkalemia; J20.9 Acute bronchitis, unspecified; Z79.82 Long term (current) use of aspirin; Z87.891 Personal history of nicotine dependence
CPT/HCPCS: 71046; 71250; 80048; 80076; 80202; 81003; 83605; 83615; 83690; 83735; 84100; 85025; 85027; 85046; 86850; 86860; 86870; 86880; 86900; 86901; 86905; 86920; 87040; 87070; 87205; 87502; 93005; 94799; 99281; 99285; J0456; J1200; J1644; J1885; J2270; J3010; J3370; J7030; J7120; P9016

== ENCOUNTER 2017-11-14 17:54 | Inpatient (IN) | payer OTHER ==
[~2017-11-14] VITALS: Ht 170.2 cm; Wt 85.1 kg
[~2017-11-14 17:54] MED LIST changes: +OXYCODONE HCL30 MG PO
[2017-11-14 22:20] LABS: HEMATOCRIT 20.2 % (36.0-46.0); HEMOGLOBIN 7.3 G/DL (11.9-15.5); MCH 34.4 PG (29.0-34.0); MCHC 36.1 G/DL (30.0-36.0); MCV 95.3 FL (83-99); NRBC (%) 2.9 /100 WBC (0-0); PLATELET COUNT 297 K/uL (156-360); RBC DIS.WIDTH-CV 28.3 % (11.8-14.6); RBC DIS.WIDTH-SD 85.8 % (39-53); RED BLOOD COUNT 2.12 M/uL (3.80-5.20); WHITE BLOOD COUNT 28.8 K/uL (4.1-10.2)
[2017-11-14 22:43] LABS: CHLORIDE 112 mEq/L (99-109); POTASSIUM 4.3 mEq/L (3.7-5.4); SODIUM 140 mEq/L (136-147)
[2017-11-14 22:45] LABS: GLUCOSE 94 mg/dL (70-99); TOTAL PROTEIN 7.9 g/dL (6.4-8.3)
[2017-11-14 22:47] LABS: TOTAL BILIRUBIN 6.9 mg/dL (0.0-1.0)
[2017-11-14 22:49] LABS: ALKALINE PHOSPHATASE 340 IU/L (3-129); CREATININE 0.7 mg/dL (0.6-1.3); GFR ESTIMATE (CALCULATED) > 59 mL/min/
[2017-11-14 22:50] LABS: UREA NITROGEN (BUN) 17 mg/dL (9-23)
[2017-11-14 22:51] LABS: AST (GOT) 107 IU/L (2-34)
[2017-11-14 22:52] LABS: ALT (GPT) 68 IU/L (3-49); LIPASE 198 U/L (1.0-51.0)
[2017-11-14 22:54] LABS: RETIC HGB EQUIVALENT 32.4 (28-36); RETICULOCYTE COUNT > 18.0 % (0.5-1.8)
[2017-11-14 23:11] LABS: APPEARANCE CLEAR ((CLEAR)); BILIRUBIN NEGATIVE; BLOOD SMALL; COLOR AMBER ((YELLOW)); GLUCOSE (STRIP) NEGATIVE; KETONES NEGATIVE; LEUKOCYTES NEGATIVE; NITRITE NEGATIVE; PROTEIN (STRIP) 30; SPECIFIC GRAVITY 1.012 (1.000-1.030); UROBILINOGEN 0.2 MG/DL (0.2-1.0)
[2017-11-14 23:16] LABS: BACTERIA NONE SEEN /HPF; EPITHELIAL CELLS RARE /HPF; HYALINE CASTS 0-5 /LPF; MUCUS NONE SEEN /LPF; RED BLOOD CELLS 0-5 /HPF (0-5); UCUL ADDED? NO; WHITE BLOOD CELLS 0-5 /HPF (0-5)
[2017-11-15] VITALS (9 sets, daily range): BP systolic 105–134; BP diastolic 53–73
[2017-11-15] MEDS ORDERED: TYLENOL325 M2 PO (01:02)
[2017-11-15 08:04] LABS: HEMATOCRIT 18.6 % (36.0-46.0); MCHC 33.9 G/DL (30.0-36.0); MCV 97.4 FL (83-99); NRBC (%) 2.3 /100 WBC (0-0); PLATELET COUNT 263 K/uL (156-360); RBC DIS.WIDTH-CV 28.3 % (11.8-14.6); RBC DIS.WIDTH-SD 91.5 % (39-53); RED BLOOD COUNT 1.91 M/uL (3.80-5.20); WHITE BLOOD COUNT 25.2 K/uL (4.1-10.2)
[2017-11-15 08:05] LABS: HEMOGLOBIN 6.3 G/DL (11.9-15.5)
[2017-11-15 08:21] LABS: PLAT.SUFFICIENCY ADEQUATE
[2017-11-16 00:16] VITALS: BP 114/58
[2017-11-16 05:56] LABS: BASOPHIL (%) 0.8 % (0-1); BASOPHIL COUNT 0.2 K/uL (0-0.1); EOSINOPHIL (%) 5.2 % (0-5); EOSINOPHIL COUNT 1.1 K/uL (0-0.3); HEMATOCRIT 23.7 % (36.0-46.0); HEMOGLOBIN 8.1 G/DL (11.9-15.5); IMMATURE GRANULOCYTE (%) 0.6 % (0.0-0.7); LYMPHOCYTE (%) 48.6 % (15-42); LYMPHOCYTE COUNT 10.5 K/uL (1.0-2.8); MCH 31.9 PG (29.0-34.0); MCHC 34.2 G/DL (30.0-36.0); MONOCYTE (%) 11.8 % (3-12); MONOCYTE COUNT 2.6 K/uL (0-0.8); NEUTROPHIL COUNT 7.2 K/uL (1.8-6.4); PLATELET COUNT 261 K/uL (156-360); RBC DIS.WIDTH-CV 23.1 % (11.8-14.6); RBC DIS.WIDTH-SD 73.6 % (39-53); WHITE BLOOD COUNT 21.7 K/uL (4.1-10.2)
[2017-11-16 05:59] LABS: MCV 93.3 FL (83-99); RED BLOOD COUNT 2.54 M/uL (3.80-5.20)
[2017-11-16 06:17] LABS: ALBUMIN 3.4 G/DL (3.2-4.8); ALKALINE PHOSPHATASE 259 IU/L (3-129); ALT (GPT) 49 IU/L (3-49); AST (GOT) 76 IU/L (2-34); CHLORIDE 113 MEQ/L (99-109); CREATININE 0.7 MG/DL (0.6-1.3); GFR ESTIMATE (CALCULATED) > 59 mL/min/; GLUCOSE 96 mg/dL (70-99); SODIUM 139 MEQ/L (136-147); TOTAL BILIRUBIN 5.4 MG/DL (0.0-1.0); TOTAL PROTEIN 6.3 G/DL (6.4-8.3); UREA NITROGEN (BUN) 11 mg/dL (9-23)
[2017-11-16 07:26] VITALS: BP 116/58
[2017-11-16 11:25] VITALS: BP 108/76
[2017-11-16 16:11] VITALS: BP 122/60
[2017-11-16 23:48] VITALS: BP 134/63
[2017-11-17 04:32] VITALS: BP 107/52
[2017-11-17 05:48] LABS: BASOPHIL (%) 0.7 % (0-1); BASOPHIL COUNT 0.2 K/uL (0-0.1); EOSINOPHIL (%) 5.4 % (0-5); EOSINOPHIL COUNT 1.2 K/uL (0-0.3); HEMATOCRIT 22.3 % (36.0-46.0); HEMOGLOBIN 7.7 G/DL (11.9-15.5); IMMATURE GRANULOCYTE (%) 0.5 % (0.0-0.7); MCH 32.1 PG (29.0-34.0); MCHC 34.5 G/DL (30.0-36.0); MCV 92.9 FL (83-99); MONOCYTE (%) 11.2 % (3-12); MONOCYTE COUNT 2.5 K/uL (0-0.8); NEUTROPHIL (%) 32.2 % (45-76); NEUTROPHIL COUNT 7.1 K/uL (1.8-6.4); NRBC (%) 1.1 /100 WBC (0-0); PLATELET COUNT 279 K/uL (156-360); RBC DIS.WIDTH-CV 22.3 % (11.8-14.6); RBC DIS.WIDTH-SD 72.9 % (39-53)
[2017-11-17 06:11] LABS: ALBUMIN 3.6 G/DL (3.2-4.8); ALKALINE PHOSPHATASE 261 IU/L (3-129); ALT (GPT) 44 IU/L (3-49); AST (GOT) 71 IU/L (2-34); CHLORIDE 111 MEQ/L (99-109); CREATININE 0.7 MG/DL (0.6-1.3); GFR ESTIMATE (CALCULATED) > 59 mL/min/; GLUCOSE 91 mg/dL (70-99); LACTATE DEHYDROGENASE 500 IU/L (20-246); POTASSIUM 4.5 MEQ/L (3.7-5.4); SODIUM 138 MEQ/L (136-147); TOTAL BILIRUBIN 5.7 MG/DL (0.0-1.0); TOTAL PROTEIN 6.6 G/DL (6.4-8.3); UREA NITROGEN (BUN) 12 mg/dL (9-23)
[2017-11-17 06:24] LABS: ANISOCYTOSIS 2+; BURR CELLS 1+; IMM.RETIC FRACTION 19.7 % (3-19); MACROCYTES 1+; POLYCHROMASIA 3+; RETIC HGB EQUIVALENT 30.6 (28-36); RETICULOCYTE COUNT > 18.0 % (0.5-1.8); SCHISTOCYTES 1+; SICKLE CELLS 2+
[2017-11-17 07:28] VITALS: BP 101/53
[2017-11-17 10:55] VITALS: BP 98/56
[2017-11-17 14:59] VITALS: BP 107/59
[2017-11-17 20:01] VITALS: BP 110/73
[2017-11-18] VITALS (11 sets, daily range): BP systolic 96–123; BP diastolic 52–60
[2017-11-18 06:19] LABS: HEMATOCRIT 19.5 % (36.0-46.0); HEMOGLOBIN 7.1 G/DL (11.9-15.5); MCH 33.3 PG (29.0-34.0); MCHC 36.4 G/DL (30.0-36.0); MCV 91.5 FL (83-99); NRBC (%) 0.6 /100 WBC (0-0); RBC DIS.WIDTH-CV 21.2 % (11.8-14.6); RBC DIS.WIDTH-SD 69.5 % (39-53); RED BLOOD COUNT 2.13 M/uL (3.80-5.20); WHITE BLOOD COUNT 23.2 K/uL (4.1-10.2)
[2017-11-18 06:30] LABS: ALBUMIN 3.4 G/DL (3.2-4.8); ALKALINE PHOSPHATASE 243 IU/L (3-129); ALT (GPT) 46 IU/L (3-49); AST (GOT) 82 IU/L (2-34); CHLORIDE 113 MEQ/L (99-109); CREATININE 0.7 MG/DL (0.6-1.3); GFR ESTIMATE (CALCULATED) > 59 mL/min/; GLUCOSE 100 mg/dL (70-99); POTASSIUM 4.7 MEQ/L (3.7-5.4); SODIUM 140 MEQ/L (136-147); TOTAL BILIRUBIN 6.5 MG/DL (0.0-1.0); UREA NITROGEN (BUN) 14 mg/dL (9-23)
[2017-11-18 08:22] LABS: PLAT.SUFFICIENCY ADEQUATE; PLATELET COUNT 258 K/uL (156-360)
[2017-11-19 06:22] LABS: HEMATOCRIT 23.8 % (36.0-46.0); HEMOGLOBIN 8.3 G/DL (11.9-15.5); MCH 31.2 PG (29.0-34.0); MCHC 34.9 G/DL (30.0-36.0); MCV 89.5 FL (83-99); NRBC (%) 0.8 /100 WBC (0-0); RBC DIS.WIDTH-CV 18.8 % (11.8-14.6); RBC DIS.WIDTH-SD 59.7 % (39-53); WHITE BLOOD COUNT 24.4 K/uL (4.1-10.2)
[2017-11-19 06:31] LABS: RED BLOOD COUNT 2.66 M/uL (3.80-5.20)
[2017-11-19 06:52] LABS: CHLORIDE 109 MEQ/L (99-109); CREATININE 0.8 MG/DL (0.6-1.3); GFR ESTIMATE (CALCULATED) > 59 mL/min/; GLUCOSE 96 mg/dL (70-99); POTASSIUM 4.8 MEQ/L (3.7-5.4); SODIUM 137 MEQ/L (136-147); UREA NITROGEN (BUN) 16 mg/dL (9-23)
[2017-11-19 07:05] LABS: PLAT.SUFFICIENCY ADEQUATE; PLATELET COUNT 259 K/uL (156-360)
[2017-11-19 08:09] VITALS: BP 103/53
[2017-11-19 11:38] VITALS: BP 116/55
[2017-11-19 13:35] LABS: APPEARANCE CLEAR ((CLEAR)); BILIRUBIN NEGATIVE; BLOOD NEGATIVE; COLOR AMBER ((YELLOW)); GLUCOSE (STRIP) NEGATIVE; KETONES NEGATIVE; LEUKOCYTES NEGATIVE; NITRITE NEGATIVE; PROTEIN (STRIP) NEGATIVE; SPECIFIC GRAVITY 1.009 (1.000-1.030); UCUL ADDED? NO
[2017-11-19 17:16] VITALS: BP 108/58
[2017-11-19 21:45] VITALS: BP 111/53
[2017-11-20] VITALS (7 sets, daily range): BP systolic 97–117; BP diastolic 52–59
[2017-11-20 06:13] LABS: HEMATOCRIT 22.1 % (36.0-46.0); HEMOGLOBIN 7.5 G/DL (11.9-15.5); MCH 30.9 PG (29.0-34.0); MCHC 33.9 G/DL (30.0-36.0); MCV 90.9 FL (83-99); NRBC (%) 0.4 /100 WBC (0-0); PLATELET COUNT 240 K/uL (156-360); RBC DIS.WIDTH-CV 18.6 % (11.8-14.6); RBC DIS.WIDTH-SD 60.1 % (39-53); RED BLOOD COUNT 2.43 M/uL (3.80-5.20); WHITE BLOOD COUNT 21.8 K/uL (4.1-10.2)
[2017-11-20 06:39] LABS: ALKALINE PHOSPHATASE 218 IU/L (3-129); ALT (GPT) 77 IU/L (3-49); AST (GOT) 108 IU/L (2-34); CHLORIDE 110 MEQ/L (99-109); CREATININE 0.8 MG/DL (0.6-1.3); GFR ESTIMATE (CALCULATED) > 59 mL/min/; GLUCOSE 104 mg/dL (70-99); POTASSIUM 4.4 MEQ/L (3.7-5.4); SODIUM 136 MEQ/L (136-147); UREA NITROGEN (BUN) 17 mg/dL (9-23)
[2017-11-20 06:57] LABS: TOTAL BILIRUBIN 18.4 MG/DL (0.0-1.0)
[2017-11-20 07:07] LABS: BASOPHIL (%) 0.6 % (0-1); BASOPHIL COUNT 0.1 K/uL (0-0.1); EOSINOPHIL (%) 3.4 % (0-5); EOSINOPHIL COUNT 0.8 K/uL (0-0.3); IMMATURE GRANULOCYTE (%) 0.6 % (0.0-0.7); LYMPHOCYTE (%) 33.4 % (15-42); LYMPHOCYTE COUNT 7.3 K/uL (1.0-2.8); MONOCYTE (%) 15.3 % (3-12); MONOCYTE COUNT 3.3 K/uL (0-0.8); NEUTROPHIL (%) 46.7 % (45-76); NEUTROPHIL COUNT 10.2 K/uL (1.8-6.4)
[2017-11-21] VITALS (10 sets, daily range): BP systolic 97–131; BP diastolic 52–63
[2017-11-21 06:51] LABS: HEMATOCRIT 25.9 % (36.0-46.0); MCH 30.9 PG (29.0-34.0); MCHC 34.7 G/DL (30.0-36.0); NRBC (%) 0.5 /100 WBC (0-0); RBC DIS.WIDTH-CV 18.5 % (11.8-14.6); RBC DIS.WIDTH-SD 59.3 % (39-53); RED BLOOD COUNT 2.91 M/uL (3.80-5.20); WHITE BLOOD COUNT 20.1 K/uL (4.1-10.2)
[2017-11-21 07:43] LABS: PLAT.SUFFICIENCY ADEQUATE; PLATELET COUNT 240 K/uL (156-360)
[2017-11-21 08:28] LABS: ALBUMIN 3.1 G/DL (3.2-4.8); ALKALINE PHOSPHATASE 218 IU/L (3-129); ALT (GPT) 70 IU/L (3-49); AST (GOT) 84 IU/L (2-34); CHLORIDE 109 MEQ/L (99-109); CREATININE 0.9 MG/DL (0.6-1.3); DIRECT BILIRUBIN 17.4 mg/dL (0.0-0.3); GFR ESTIMATE (CALCULATED) > 59 mL/min/; GLUCOSE 107 mg/dL (70-99); POTASSIUM 4.4 MEQ/L (3.7-5.4); SODIUM 137 MEQ/L (136-147); TOTAL PROTEIN 5.6 G/DL (6.4-8.3); UREA NITROGEN (BUN) 15 mg/dL (9-23)
[2017-11-21 08:29] LABS: TOTAL BILIRUBIN 24.5 MG/DL (0.0-1.0)
[2017-11-21 09:03] LABS: FERRITIN 10635 NG/ML (10-291)
[2017-11-22 04:08] VITALS: BP 125/58
[2017-11-22 07:30] VITALS: BP 95/51
[2017-11-22 11:40] VITALS: BP 121/59
[2017-11-22] MEDS ORDERED: MYCOSTATIN 100,60 ML PO (12:40)
== END 2017-11-22 16:08 | disposition home or self-care (01) | DRG 812 ==
LOC: EME 17:54 → 5WEST 11-15 00:13 → 4EAST 11-15 00:13 → EDOF 11-15 00:13 → ENRESERV 11-15 00:21 → 5WEST 11-15 03:05 → ENRESERV 11-18 13:36 → 4EAST 11-18 14:21 → ENRESERV 11-18 14:45 → 5WEST 11-18 14:56 → 4EAST 11-18 15:29 → ENRESERV 11-20 11:28 → CANRESERV 11-20 11:36 → 4EAST 11-20 12:55 → ENRESERV 11-21 12:39 → 2EAST 11-21 15:42 → 4EAST 11-21 15:48 → ENRESERV 11-21 15:51 → 2EAST 11-21 16:22
PROVIDERS: Anesthesiology; Emergency Medicine; Hospitalist; Internal Medicine; Physician Assistant
PROC: 30233N1 Transfusion of Nonautologous Red Blood Cells into Peripheral Vein, Percutaneous Approach (ICD-10-PCS; principal; 2017-11-15)
DX: D57.00 Hb-SS disease with crisis, unspecified (principal); I27.20 Pulmonary hypertension, unspecified; F17.200 Nicotine dependence, unspecified, uncomplicated; Z91.19 Patient's noncompliance with other medical treatment and regimen; E83.111 Hemochromatosis due to repeated red blood cell transfusions; Z90.49 Acquired absence of other specified parts of digestive tract; D72.829 Elevated white blood cell count, unspecified; E66.9 Obesity, unspecified; Z68.25 Body mass index [BMI] 25.0-25.9, adult
CPT/HCPCS: 71045; 71046; 71275; 80048; 80053; 81003; 82248; 82728; 83615; 83615 90; 83625 90; 83690; 85025; 85027; 85046; 86850; 86860; 86870; 86880; 86900; 86901; 86905; 86920; 87040; 93005; 93306; 94799; 99281; 99285; J1200; J1644; J1885; J2270; J3010; J7030; P9016

== ENCOUNTER 2018-02-19 05:05 | Inpatient (IN) | payer OTHER ==
[2018-02-19] VITALS (8 sets, daily range): BP systolic 97–115; BP diastolic 49–64
[~2018-02-19] VITALS: Ht 170.2 cm; Wt 68.7 kg
[~2018-02-19 05:05] MED LIST changes: +MYCOSTATIN 100,60 ML PO; +TYLENOL325 M2 PO
[2018-02-19 07:09] LABS: HEMATOCRIT 18.9 % (36.0-46.0); MCH 34.6 PG (29.0-34.0); MCHC 34.4 G/DL (30.0-36.0); MCV 100.5 FL (83-99); NRBC (%) 4.7 /100 WBC (0-0); RBC DIS.WIDTH-CV 30.5 % (11.8-14.6); RBC DIS.WIDTH-SD 101.5 % (39-53); RED BLOOD COUNT 1.88 M/uL (3.80-5.20)
[2018-02-19 07:10] LABS: HEMOGLOBIN 6.5 G/DL (11.9-15.5); WHITE BLOOD COUNT 30.7 K/uL (4.1-10.2)
[2018-02-19 07:16] LABS: ALBUMIN 3.8 G/DL (3.2-4.8); ALKALINE PHOSPHATASE 320 IU/L (3-129); ALT (GPT) 57 IU/L (3-49); AST (GOT) 97 IU/L (2-34); CHLORIDE 109 MEQ/L (99-109); CREATININE 0.7 MG/DL (0.6-1.3); GFR ESTIMATE (CALCULATED) > 59 mL/min/; GLUCOSE 98 mg/dL (70-99); LIPASE 177 U/L (1.0-51.0); POTASSIUM 4.3 MEQ/L (3.7-5.4); SODIUM 138 MEQ/L (136-147); TOTAL BILIRUBIN 9.1 MG/DL (0.0-1.0); TOTAL PROTEIN 6.8 G/DL (6.4-8.3); UREA NITROGEN (BUN) 11 mg/dL (9-23)
[2018-02-19 07:30] LABS: TROP-I INTERPRETATION NEGATIVE; TROPONIN-I < 0.01 ng/mL (0.0-0.30)
[2018-02-19 07:53] LABS: PLATELET COUNT 372 K/uL (156-360)
[2018-02-19 07:54] LABS: IMM.RETIC FRACTION 41.7 % (3-19); PLAT.SUFFICIENCY INCREASED; RETIC HGB EQUIVALENT 40.4 (28-36); RETICULOCYTE COUNT > 18.0 % (0.5-1.8)
[2018-02-19] MEDS ORDERED: TYLENOL W/COD1 COMB1 PO (08:15)
[2018-02-19] MEDS ORDERED: ROXICODONE30 MG PO (08:15)
[2018-02-19] MEDS ORDERED: DAILY VITE1 EAC1 PO (08:15)
[2018-02-20 00:47] VITALS: BP 97/49
[2018-02-20 00:57] VITALS: BP 109/162
[2018-02-20 01:57] VITALS: BP 106/59
[2018-02-20 02:39] LABS: APPEARANCE CLEAR ((CLEAR)); BILIRUBIN NEGATIVE; BLOOD NEGATIVE; COLOR AMBER ((YELLOW)); GLUCOSE (STRIP) NEGATIVE; KETONES NEGATIVE; LEUKOCYTES NEGATIVE; NITRITE NEGATIVE; PROTEIN (STRIP) 30; SPECIFIC GRAVITY 1.012 (1.000-1.030); UCUL ADDED? NO
[2018-02-20 08:22] VITALS: BP 113/65
[2018-02-20 10:17] LABS: HEMOGLOBIN 7.7 G/DL (11.9-15.5); MCH 32.6 PG (29.0-34.0); NRBC (%) 3.8 /100 WBC (0-0); RBC DIS.WIDTH-CV 25.6 % (11.8-14.6); RBC DIS.WIDTH-SD 80.5 % (39-53); WHITE BLOOD COUNT 24.1 K/uL (4.1-10.2)
[2018-02-20 10:23] LABS: MCV 93.2 FL (83-99); RED BLOOD COUNT 2.36 M/uL (3.80-5.20)
[2018-02-20 10:25] LABS: ALBUMIN 3.3 G/DL (3.2-4.8); ALKALINE PHOSPHATASE 278 IU/L (3-129); ALT (GPT) 60 IU/L (3-49); AST (GOT) 106 IU/L (2-34); CHLORIDE 112 MEQ/L (99-109); CREATININE 0.7 MG/DL (0.6-1.3); GFR ESTIMATE (CALCULATED) > 59 mL/min/; GLUCOSE 105 mg/dL (70-99); POTASSIUM 4.8 MEQ/L (3.7-5.4); SODIUM 139 MEQ/L (136-147); TOTAL BILIRUBIN 10.8 MG/DL (0.0-1.0); TOTAL PROTEIN 6.3 G/DL (6.4-8.3); UREA NITROGEN (BUN) 8 mg/dL (9-23)
[2018-02-20 10:29] LABS: PLAT.SUFFICIENCY ADEQUATE; PLATELET COUNT 286 K/uL (156-360)
[2018-02-20 15:37] VITALS: BP 108/64
[2018-02-20 16:42] LABS: HEMATOCRIT 21.7 % (36.0-46.0); HEMOGLOBIN 7.5 G/DL (11.9-15.5); MCV 93.9 FL (83-99)
[2018-02-20 23:50] VITALS: BP 114/59
[2018-02-21 06:03] LABS: HEMATOCRIT 21.1 % (36.0-46.0); HEMOGLOBIN 7.2 G/DL (11.9-15.5); MCH 31.9 PG (29.0-34.0); MCHC 34.1 G/DL (30.0-36.0); MCV 93.4 FL (83-99); NRBC (%) 2.7 /100 WBC (0-0); RBC DIS.WIDTH-CV 25.1 % (11.8-14.6); RBC DIS.WIDTH-SD 80.2 % (39-53); RED BLOOD COUNT 2.26 M/uL (3.80-5.20); WHITE BLOOD COUNT 22.7 K/uL (4.1-10.2)
[2018-02-21 06:24] LABS: CHLORIDE 112 MEQ/L (99-109); CREATININE 0.6 MG/DL (0.6-1.3); GFR ESTIMATE (CALCULATED) > 59 mL/min/; GLUCOSE 91 mg/dL (70-99); POTASSIUM 4.6 MEQ/L (3.7-5.4); SODIUM 141 MEQ/L (136-147); UREA NITROGEN (BUN) 8 mg/dL (9-23)
[2018-02-21 06:47] LABS: PLAT.SUFFICIENCY ADEQUATE; PLATELET COUNT 249 K/uL (156-360)
[2018-02-21 07:01] VITALS: BP 109/59
[2018-02-21 15:10] VITALS: BP 122/65
[2018-02-22] VITALS (7 sets, daily range): BP systolic 104–129; BP diastolic 55–64
[2018-02-22 07:49] LABS: HEMATOCRIT 20.2 % (36.0-46.0); HEMOGLOBIN 7.1 G/DL (11.9-15.5); MCH 32.4 PG (29.0-34.0); MCHC 35.1 G/DL (30.0-36.0); MCV 92.2 FL (83-99); NRBC (%) 1.6 /100 WBC (0-0); PLATELET COUNT 202 K/uL (156-360); RBC DIS.WIDTH-CV 23.8 % (11.8-14.6); RBC DIS.WIDTH-SD 76.1 % (39-53); RED BLOOD COUNT 2.19 M/uL (3.80-5.20); WHITE BLOOD COUNT 24.6 K/uL (4.1-10.2)
[2018-02-22 08:30] LABS: ALBUMIN 3.3 G/DL (3.2-4.8); ALKALINE PHOSPHATASE 282 IU/L (3-129); ALT (GPT) 54 IU/L (3-49); AST (GOT) 100 IU/L (2-34); CHLORIDE 110 MEQ/L (99-109); CREATININE 0.7 MG/DL (0.6-1.3); GFR ESTIMATE (CALCULATED) > 59 mL/min/; GLUCOSE 95 mg/dL (70-99); POTASSIUM 4.7 MEQ/L (3.7-5.4); SODIUM 139 MEQ/L (136-147); UREA NITROGEN (BUN) 13 mg/dL (9-23)
[2018-02-22 09:17] LABS: ABS NEUTROPHIL COUNT 11.1; ANISOCYTOSIS 2+; BAND NEUTROPHILS 1.5 % (0-8.0); BASOPHILS 0.5 %; BURR CELLS 1+; EOSINOPHIL ABS CT 1.2; HOWELL JOLLY BODIES 1+; LYMPHOCYTES 39.5 % (15.0-45.0); MACROCYTES 1+; PLAT.SUFFICIENCY ADEQUATE; POIKILOCYTOSIS 2+; POLYCHROMASIA 2+; SEG.NEUTROPHILS 43.5 % (46.0-76.0); SICKLE CELLS 2+; TARGET CELLS 1+
[2018-02-23] VITALS (8 sets, daily range): BP systolic 99–112; BP diastolic 50–62
[2018-02-23 11:11] LABS: HEMATOCRIT 22.4 % (36.0-46.0); MCH 31.9 PG (29.0-34.0); MCHC 35.7 G/DL (30.0-36.0); MCV 89.2 FL (83-99); RBC DIS.WIDTH-CV 20.4 % (11.8-14.6); RBC DIS.WIDTH-SD 62.9 % (39-53); RED BLOOD COUNT 2.51 M/uL (3.80-5.20); WHITE BLOOD COUNT 25.3 K/uL (4.1-10.2)
[2018-02-23 11:34] LABS: ALKALINE PHOSPHATASE 284 IU/L (3-129); ALT (GPT) 42 IU/L (3-49); AST (GOT) 88 IU/L (2-34); CHLORIDE 107 MEQ/L (99-109); CREATININE 0.8 MG/DL (0.6-1.3); GFR ESTIMATE (CALCULATED) > 59 mL/min/; GLUCOSE 94 mg/dL (70-99); POTASSIUM 4.4 MEQ/L (3.7-5.4); SODIUM 136 MEQ/L (136-147); UREA NITROGEN (BUN) 16 mg/dL (9-23)
[2018-02-23 11:37] LABS: PLAT.SUFFICIENCY ADEQUATE; PLATELET COUNT 227 K/uL (156-360); TOTAL BILIRUBIN 21.5 MG/DL (0.0-1.0)
[2018-02-24] VITALS: BP 106/55
[2018-02-24 07:52] VITALS: BP 98/52
[2018-02-24 10:01] LABS: HEMATOCRIT 21.2 % (36.0-46.0); HEMOGLOBIN 7.5 G/DL (11.9-15.5); MCH 31.8 PG (29.0-34.0); MCHC 35.4 G/DL (30.0-36.0); MCV 89.8 FL (83-99); RBC DIS.WIDTH-CV 20.7 % (11.8-14.6); RED BLOOD COUNT 2.36 M/uL (3.80-5.20)
[2018-02-24 10:35] LABS: PLAT.SUFFICIENCY ADEQUATE; PLATELET COUNT 256 K/uL (156-360)
[2018-02-24 16:09] VITALS: BP 100/52
[2018-02-25 00:15] VITALS: BP 95/49
[2018-02-25 00:40] LABS: APPEARANCE SL.HAZY ((CLEAR)); BILIRUBIN MODERATE; BLOOD NEGATIVE; COLOR AMBER ((YELLOW)); GLUCOSE (STRIP) NEGATIVE; KETONES NEGATIVE; LEUKOCYTES NEGATIVE; NITRITE NEGATIVE; PROTEIN (STRIP) NEGATIVE; SPECIFIC GRAVITY 1.011 (1.000-1.030)
[2018-02-25 00:43] LABS: ICTOTEST ND
[2018-02-25 01:02] LABS: BACTERIA RARE /HPF; EPITHELIAL CELLS RARE /HPF; MUCUS TRACE /LPF; RED BLOOD CELLS 0-5 /HPF (0-5); UCUL ADDED? NO; WHITE BLOOD CELLS NONE SEEN /HPF (0-5)
[2018-02-25 07:47] VITALS: BP 100/40
[2018-02-25 11:51] VITALS: BP 110/70
[2018-02-25 13:11] LABS: HEMATOCRIT 24.4 % (36.0-46.0); HEMOGLOBIN 8.6 G/DL (11.9-15.5); MCHC 35.2 G/DL (30.0-36.0); MCV 90.7 FL (83-99); NRBC (%) 1.2 /100 WBC (0-0); RBC DIS.WIDTH-CV 20.6 % (11.8-14.6); RBC DIS.WIDTH-SD 64.5 % (39-53); RED BLOOD COUNT 2.69 M/uL (3.80-5.20); WHITE BLOOD COUNT 20.8 K/uL (4.1-10.2)
[2018-02-25 13:45] LABS: ALBUMIN 3.1 g/dL (3.2-4.8); CHLORIDE 104 mEq/L (99-109); POTASSIUM 4.5 mEq/L (3.7-5.4); SODIUM 136 mEq/L (136-147)
[2018-02-25 13:47] LABS: GLUCOSE 102 mg/dL (70-99); TOTAL PROTEIN 6.5 g/dL (6.4-8.3)
[2018-02-25 13:49] LABS: TOTAL BILIRUBIN > 23.5 mg/dL (0.0-1.0)
[2018-02-25 13:51] LABS: ALKALINE PHOSPHATASE 301 IU/L (3-129); CREATININE 1.2 mg/dL (0.6-1.3); GFR ESTIMATE (CALCULATED) > 59 mL/min/
[2018-02-25 13:52] LABS: AST (GOT) 115 IU/L (2-34); UREA NITROGEN (BUN) 22 mg/dL (9-23)
[2018-02-25 13:54] LABS: ALT (GPT) 52 IU/L (3-49)
[2018-02-25 14:37] LABS: PLAT.SUFFICIENCY ADEQUATE; PLATELET COUNT 250 K/uL (156-360)
[2018-02-25 15:56] VITALS: BP 105/30
[2018-02-25 23:48] VITALS: BP 100/51
[2018-02-26 07:09] LABS: BASOPHIL (%) 0.7 % (0-1); BASOPHIL COUNT 0.1 K/uL (0-0.1); EOSINOPHIL (%) 2.4 % (0-5); EOSINOPHIL COUNT 0.4 K/uL (0-0.3); HEMATOCRIT 21.2 % (36.0-46.0); IMMATURE GRANULOCYTE (%) 1.9 % (0.0-0.7); LYMPHOCYTE COUNT 4.4 K/uL (1.0-2.8); MCH 30.7 PG (29.0-34.0); MONOCYTE (%) 12.5 % (3-12); MONOCYTE COUNT 2.2 K/uL (0-0.8); NEUTROPHIL (%) 57.5 % (45-76); NEUTROPHIL COUNT 10.1 K/uL (1.8-6.4); NRBC (%) 1.7 /100 WBC (0-0); RBC DIS.WIDTH-CV 20.8 % (11.8-14.6); RBC DIS.WIDTH-SD 67.4 % (39-53); RED BLOOD COUNT 2.28 M/uL (3.80-5.20); WHITE BLOOD COUNT 17.5 K/uL (4.1-10.2)
[2018-02-26 07:19] LABS: ALBUMIN 2.9 G/DL (3.2-4.8); ALKALINE PHOSPHATASE 224 IU/L (3-129); ALT (GPT) 44 IU/L (3-49); AST (GOT) 103 IU/L (2-34); CHLORIDE 104 MEQ/L (99-109); CREATININE 1.1 MG/DL (0.6-1.3); GFR ESTIMATE (CALCULATED) > 59 mL/min/; GLUCOSE 87 mg/dL (70-99); POTASSIUM 4.7 MEQ/L (3.7-5.4); SODIUM 136 MEQ/L (136-147); TOTAL PROTEIN 5.8 G/DL (6.4-8.3); UREA NITROGEN (BUN) 21 mg/dL (9-23)
[2018-02-26 07:20] LABS: TOTAL BILIRUBIN 31.1 MG/DL (0.0-1.0)
[2018-02-26 07:48] LABS: PLAT.SUFFICIENCY ADEQUATE; PLATELET COUNT 233 K/uL (156-360)
[2018-02-26 09:00] VITALS: BP 90/51
[2018-02-26 16:34] VITALS: BP 91/54
[2018-02-26 20:45] LABS: TOTAL CHOLESTEROL 93 mg/dL (Desirable<200); TRIGLYCERIDES 287 MG/DL (Normal: <150)
[2018-02-26 20:46] LABS: HDL CHOLESTEROL 8 MG/DL (Desirable>=50); LDL CHOLESTEROL 28 mg/dL (Desirable<100); NON-HDL CHOLESTEROL 85 mg/dL (Desirable<160)
[2018-02-26 21:01] LABS: DIRECT BILIRUBIN 19.9 mg/dL (0.0-0.3)
[2018-02-26 23:48] VITALS: BP 101/47
[2018-02-26 23:59] LABS: FERRITIN > 15000 NG/ML (10-291)
[2018-02-27] VITALS (9 sets, daily range): BP systolic 101–111; BP diastolic 53–59
[2018-02-27 10:44] LABS: ABSOLUTE RETICULOCYTE CT. 0.36 M/uL (0.02-0.08); HEMATOCRIT 25.6 % (36.0-46.0); HEMOGLOBIN 8.7 G/DL (11.9-15.5); IMM.RETIC FRACTION 45.4 % (3-19); MCH 30.7 PG (29.0-34.0); MCV 90.5 FL (83-99); NRBC (%) 2.6 /100 WBC (0-0); RBC DIS.WIDTH-SD 68.8 % (39-53); RETIC HGB EQUIVALENT 31.4 (28-36); WHITE BLOOD COUNT 16.1 K/uL (4.1-10.2)
[2018-02-27 10:49] LABS: PLATELET COUNT 321 K/uL (156-360); RED BLOOD COUNT 2.83 M/uL (3.80-5.20); RETICULOCYTE COUNT 12.7 % (0.5-1.8)
[2018-02-27 11:52] LABS: ALBUMIN 2.9 G/DL (3.2-4.8); ALKALINE PHOSPHATASE 234 IU/L (3-129); ALT (GPT) 43 IU/L (3-49); AST (GOT) 94 IU/L (2-34); CHLORIDE 105 MEQ/L (99-109); CREATININE 0.9 MG/DL (0.6-1.3); GFR ESTIMATE (CALCULATED) > 59 mL/min/; GLUCOSE 93 mg/dL (70-99); LACTATE DEHYDROGENASE 384 IU/L (20-246); POTASSIUM 4.3 MEQ/L (3.7-5.4); SODIUM 137 MEQ/L (136-147); TOTAL PROTEIN 6.3 G/DL (6.4-8.3); UREA NITROGEN (BUN) 14 mg/dL (9-23)
[2018-02-27 11:55] LABS: TOTAL BILIRUBIN 24.1 MG/DL (0.0-1.0)
[2018-02-28 00:09] VITALS: BP 98/80
[2018-02-28 07:10] VITALS: BP 103/54
[2018-02-28 10:27] LABS: ABSOLUTE RETICULOCYTE CT. 0.34 M/uL (0.02-0.08); IMM.RETIC FRACTION 39.6 % (3-19)
[2018-02-28 10:36] LABS: RETICULOCYTE COUNT 11.3 % (0.5-1.8)
[2018-02-28 10:37] LABS: HEMATOCRIT 27.2 % (36.0-46.0); HEMOGLOBIN 9.2 G/DL (11.9-15.5); MCH 30.4 PG (29.0-34.0); MCHC 33.8 G/DL (30.0-36.0); MCV 89.8 FL (83-99); NRBC (%) 3.5 /100 WBC (0-0); RBC DIS.WIDTH-CV 22.3 % (11.8-14.6); RED BLOOD COUNT 3.03 M/uL (3.80-5.20); WHITE BLOOD COUNT 16.1 K/uL (4.1-10.2)
[2018-02-28 10:58] LABS: PLAT.SUFFICIENCY ADEQUATE; PLATELET COUNT 325 K/uL (156-360)
[2018-02-28 13:58] LABS: ALBUMIN 2.8 G/DL (3.2-4.8); ALKALINE PHOSPHATASE 269 IU/L (3-129); ALT (GPT) 36 IU/L (3-49); AST (GOT) 79 IU/L (2-34); CHLORIDE 103 MEQ/L (99-109); CREATININE 0.8 MG/DL (0.6-1.3); DIRECT BILIRUBIN 9.4 mg/dL (0.0-0.3); GFR ESTIMATE (CALCULATED) > 59 mL/min/; GLUCOSE 113 mg/dL (70-99); LACTATE DEHYDROGENASE 325 IU/L (20-246); POTASSIUM 4.2 MEQ/L (3.7-5.4); SODIUM 136 MEQ/L (136-147); UREA NITROGEN (BUN) 12 mg/dL (9-23)
[2018-02-28 13:58] LABS: HAPTOGLOBIN+ <15 mg/dL (43-212)
[2018-02-28 14:08] LABS: TOTAL BILIRUBIN 18.5 MG/DL (0.0-1.0)
[2018-02-28 15:05] VITALS: BP 113/61
[2018-03-01 00:30] VITALS: BP 108/55
[2018-03-01 05:53] LABS: ABSOLUTE RETICULOCYTE CT. 0.34 M/uL (0.02-0.08); IMM.RETIC FRACTION 34.6 % (3-19); RETIC HGB EQUIVALENT 35.5 (28-36)
[2018-03-01 05:54] LABS: HEMATOCRIT 27.4 % (36.0-46.0); HEMOGLOBIN 9.2 G/DL (11.9-15.5); MCH 29.9 PG (29.0-34.0); MCHC 33.6 G/DL (30.0-36.0); NRBC (%) 3.3 /100 WBC (0-0); RBC DIS.WIDTH-CV 21.8 % (11.8-14.6); RBC DIS.WIDTH-SD 68.8 % (39-53); RED BLOOD COUNT 3.08 M/uL (3.80-5.20); WHITE BLOOD COUNT 15.4 K/uL (4.1-10.2)
[2018-03-01 06:16] LABS: ALBUMIN 2.9 G/DL (3.2-4.8); ALKALINE PHOSPHATASE 282 IU/L (3-129); ALT (GPT) 35 IU/L (3-49); AST (GOT) 80 IU/L (2-34); CHLORIDE 104 MEQ/L (99-109); GLUCOSE 90 mg/dL (70-99); LACTATE DEHYDROGENASE 373 IU/L (20-246); POTASSIUM 4.9 MEQ/L (3.7-5.4); SODIUM 135 MEQ/L (136-147); TOTAL PROTEIN 6.3 G/DL (6.4-8.3); UREA NITROGEN (BUN) 8 mg/dL (9-23)
[2018-03-01 06:26] LABS: CREATININE 0.2 MG/DL (0.6-1.3); GFR ESTIMATE (CALCULATED) > 59 mL/min/; TOTAL BILIRUBIN 14.3 MG/DL (0.0-1.0)
[2018-03-01 06:28] LABS: PLAT.SUFFICIENCY INCREASED; PLATELET COUNT 361 K/uL (156-360)
[2018-03-01 07:42] VITALS: BP 116/57
[2018-03-01 09:32] VITALS: BP 116/57
[2018-03-01] MEDS ORDERED: LEVAQUIN750 MG PO (10:56)
[2018-03-01 22:33] LABS: HGBE Erythrocyte Cnt 2.31 Mill/uL (3.80-5.10); HGBE Hematocrit 22.3 % (35.0-45.0); HGBE Hemoglobin 7.5 g/dL (11.7-15.5); HGBE MCH 32.5 pg (27.0-33.0); HGBE MCV 96.5 FL (80.0-100.0); HGBE RDW 20.8 % (11.0-15.0)
== END 2018-03-01 11:42 | disposition home or self-care (01) | DRG 811 ==
LOC: EME 05:05 → EDOF 07:47 → 5SOUTH 07:47 → ENRESERV 07:48 → 5SOUTH 09:46
PROVIDERS: Anesthesiology; Emergency Medicine; Hospitalist; Internal Medicine; Physician Assistant Medical
PROC: 30233N1 Transfusion of Nonautologous Red Blood Cells into Peripheral Vein, Percutaneous Approach (ICD-10-PCS; principal; 2018-02-19)
DX: D57.00 Hb-SS disease with crisis, unspecified (principal); D58.9 Hereditary hemolytic anemia, unspecified; E83.111 Hemochromatosis due to repeated red blood cell transfusions; K76.9 Liver disease, unspecified; J12.9 Viral pneumonia, unspecified; B37.0 Candidal stomatitis; J06.9 Acute upper respiratory infection, unspecified; F17.200 Nicotine dependence, unspecified, uncomplicated; Z88.0 Allergy status to penicillin; Z88.5 Allergy status to narcotic agent; Z91.14 Patient's other noncompliance with medication regimen
CPT/HCPCS: 71045; 71250; 74176; 76705; 80048; 80053; 80061; 81003; 82248; 82728; 83010 90; 83021 90; 83615; 83690; 84145 90; 84484; 85014; 85014 90; 85018; 85018 90; 85025; 85027; 85041 90; 85046; 86850; 86860; 86870; 86880; 86900; 86901; 86905; 86920; 87040; 87449; 87641; 87651 90; 93005; 94799; 99281; 99285; J1200; J1650; J1940; J1956; J2270; J2405; J3010; J7030; P9016; P9040